=== PATIENT | female | born 1995 | race Caucasian/White ===

== ENCOUNTER 2016-03-30 00:23 | Emergency (ER) | payer OTHER ==
[2016-03-30] MEDS ORDERED: NORCO, ANEXSIA 5/325MG TABLET (HYDROcodone/ACETAMINOPHEN) As Ordered ONE (01:05)
[2016-03-30] MEDS ORDERED: BACTRIM 160MG/800MG DS TAB As Ordered ONE (02:29)
[2016-03-30] MEDS ORDERED: NORCO 5/325MG TABLET (BULK) As Ordered ONE (02:29)
--- NOTE | 2016-03-30 02:46 | EDDOCDS ---
Nurse's Notes [facility] Name: Samara Paredes Age: 20 yrs Sex: Female : 1995 Arrival Date: 03/30/2016 Time: 00:23 Bed I5 / M5 Private MD: Diagnosis: Unspecified open wound of right forearm;Nondisplaced fracture of head of right radius;Fall due to ice and snow Presentation: 03/30 00:34 Presenting complaint: Patient states: Slipped on ice and injured right arm. Adult [facility] Sepsis Screening: The patient does not have new or worsening altered mentation. Patient's respiratory rate is less than 22. Systolic blood pressure is greater than 100. Patient has a qSOFA score of 0- Negative Sepsis Screen. Suicide/Homicide risk assessment- the patient denies having any suicidal and/or homicidal ideations and does not present with any other emotional, behavioral or mental health complaints. 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 Transition of care: patient was not received from another setting of care. 00:34 Acuity: DORENE Level 4 [facility] 00:34 Method Of Arrival: Walkin/Carried/Asstd [facility] Triage Assessment: 00:36 General: Appears uncomfortable, Behavior is cooperative. Pain: Location: right arm Pain mcp currently is 10 out of 10 on a pain scale. HIV screening NA for this visit Offered previously. Neurological: No deficits noted. Respiratory: No deficits noted. Derm: Skin is pink, warm & dry. Musculoskeletal: Circulation, motion, and sensation intact. SVP BUSINESS DEVELOPMENT: 00:35 0, LMP N/A - control method [facility] Historical: - Allergies: no known allergies; - Home Meds: 1. nexplanon control - PMHx: none; - PSHx: Appendectomy; Tonsillectomy; - Social history: Smoking status: Patient uses tobacco products, light tobacco smoker. No barriers to communication noted, The patient speaks fluent Kyrgyz. - Family history: Not pertinent. - : The pt / caregiver states he / she is not on anticoagulants. Home medication list is obtained from the patient. - Exposure Risk Screening:: None identified. Screenin:53 Screening information is obtained from the patient. Fall risk: No risks identified. [facility] Assistance ADL's: requires no assistance with activities of daily living. Abuse/DV Screen: The patient / caregiver reports he/she is: not in a situation that causes fear, pain or injury. Nutritional screening: No deficits noted. Advance Directives: There is no active DNR order. home support is adequate. Assessment: 00:52 General: Appears uncomfortable, Behavior is appropriate for age, cooperative. Pain: [facility] Location: right arm Pain currently is 9 out of 10 on a pain scale. Respiratory: Airway is patent Respiratory effort is even, unlabored, Respiratory pattern is regular, symmetrical. Musculoskeletal: Circulation, motion, and sensation intact Capillary refill is brisk Range of motion limited in right elbow and right wrist. 02:35 General: Appears in no apparent distress. Pain: Location: right arm. Neurological: ld5 Level of Consciousness is awake, alert. Respiratory: Airway is patent Respiratory effort is even, unlabored. Vital Signs: 00:35 BP 134 / 85; Pulse 90; Resp 18; Temp 97.6(O); Pulse Ox 99% on R/A; Weight 77.11 kg; [facility] Height 5 ft. 7 in. (170.18 cm); Pain 10/10; 01:09 Pain 10/10; cp1 02:44 BP 132 / 68; Pulse 88; Resp 18; Temp 97.6(O); Pulse Ox 98% on R/A; cp1 00:35 Body Mass Index 26.63 (77.11 kg, 170.18 cm) [facility] 01:09 patient denies pain if she doesnt move but states her pain is a 10/10 with movement cp1 Vitals: 00:35 Log In Time: March 30, 2016 at 00:23. [facility] ED Course: 00:24 Patient visited by Mary Calixto Reg. hs2 00:24 Patient moved to Waiting hs2 00:34 Triage Initiated [facility] 00:37 Patient visited by Mary Brewer RN. [facility] 00:45 Patient moved to I5 / M5 [facility] 00:47 [facility] cc10 00:47 Deon Townsend DO is Attending Physician. cc10 00:47 Patient visited by Mateusz Gonzalez PA-C. cc10 00:47 Patient visited by Mateusz Gonzalez PA-C. cc10 00:52 Patient visited by Tabby Yoo RN. [facility] 00:53 The patient / caregiver is instructed regarding the plan of care and ED course. [facility] 00:53 No IV's were initiated during this patient's visit. cjh 01:13 Patient visited by Honey Portillo LPN. cp1 01:43 Patient visited by Honey Portillo LPN. cp1 02:18 Patient visited by Honey Portillo LPN. cp1 02:25 Assist provider with fracture care of right arm Circulation, motor and sensation is ld5 intact. Set up for procedure. Immoblized with Ortho Glass splint Performed by Mateusz Gonzalez PA-C Post immobilization, circulation, motor and sensation remain intact. Patient tolerated well. 02:26 [facility] is Referral Physician. cc10 02:36 Sling applied to right arm. Patient with positive distal sensation and brisk distal ld5 capillary refill after application. Administered Medications: 01:09 Drug: HYDROcodone-acetaminophen 1 tabs [hydrocodone 5 mg-acetaminophen 325 mg tablet (1 cp1 tabs)] Route: PO; 02:37 Follow up: Response: Confirmed pt not driving.; Pain is decreased ld5 02:46 Follow up: Response: Pain is decreased cp1 02:37 Drug: Trimethoprim-Sulfamethoxazole (MRSA dose) 2 tabs [sulfamethoxazole 800 ld5 mg-trimethoprim 160 mg tablet (2 tabs)] Route: PO; 02:45 Follow up: Response: Pt left department before re-evaluation is appropriate cp1 02:43 Drug: HYDROcodone-acetaminophen 4 pack- 1 packets [hydrocodone 5 mg-acetaminophen 325 ld5 mg tablet (1 tabs)] {Co-Signature: cp1 (Honey Portillo LPN).} Route: PO; 02:43 Follow up: Response: Med's dispensed home ld5 02:46 Follow up: Response: Med's dispensed home cp1 Order Results: There are currently no results for this order. Outcome: 02:26 Discharge ordered by Provider. cc10 02:36 Discharge Assessment: Patient awake, alert and oriented x 3. No cognitive and/or ld5 functional deficits noted. Patient verbalized understanding of disposition instructions. patient administered narcotics - yes. Pt provided with safe discharge. The following High Risk Discharge criteria are identified: None. Discharged to home ambulatory. Condition: stable. Discharge instructions given to patient, Instructed on discharge instructions, follow up and referral plans. medication usage, no driving heavy equipment, Demonstrated understanding of instructions, medications, Pt was receptive of discharge instructions/ teaching. Prescriptions given X 2, Work note provided to patient. No special radiology studies were completed. Property :Personal belongings accompany Pt. 02:46 Patient left the ED. cp1 Signatures: Mary Brewer RN RN mcp Perkins, Cheryl, LPN LPN cp1 Katherin Bravo RN RN ld5 Tabby Yoo RN RN cjh Coniski, Colin, PA-C PAMehrdadC cc10 Mary Calixto, Reg Reg hs2 Honey Portillo LPN cp1 Corrections: (The following items were deleted from the chart) 00:36 00:35 Home Meds: none; [facility] 02:36 00:53 No procedures done that require assistance [facility] emilio5 MTDD
--- NOTE | 2016-03-30 02:46 | EDDOCDS ---
Physician Documentation [facility] Name: Samara Paredes Age: 20 yrs Sex: Female : 1995 Arrival Date: 03/30/2016 Time: 00:23 Bed I5 / M5 Private MD: Disposition: 03/30/16 02:26 Discharged to Home/Self Care. Impression: Nondisplaced fracture of head of right radius, Unspecified open wound of right forearm, Fall due to ice and snow. - Condition is Stable. - Discharge Instructions: Cellulitis, Wrist Fracture. - Prescriptions for Hydrocodone- Acetaminophen 5-325 mg Oral Tablet - take 1 tablet by ORAL route every 6 hours As needed MDD: 4 tabs; 12 tablet. Bactrim DS 800- 160 mg Oral Tablet - take 2 tablet by ORAL route every 12 hours for 7 days; 28 tablet. - Work Release Form - 3 day, Medication Reconciliation, Local Pharmacy Hours, [facility] Followup form. - Follow up: Emergency Department; When: As needed; Reason: Worsening of conditions. Follow up: [facility]; When: Call to arrange an appointment; Reason: Wound/Symptom Recheck, Recheck today's complaints, Worsening of conditions, Continuance of care. - Problem is an ongoing problem. - Symptoms have improved. Historical: - Allergies: no known allergies; - Home Meds: 1. nexplanon control - PMHx: none; - PSHx: Appendectomy; Tonsillectomy; - Social history: Smoking status: Patient uses tobacco products, light tobacco smoker. No barriers to communication noted, The patient speaks fluent Tajik. - Family history: Not pertinent. - : The pt / caregiver states he / she is not on anticoagulants. Home medication list is obtained from the patient. - Exposure Risk Screening:: None identified. 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 7 in. (170.18 cm); Pain 10/10; 01:09 Pain 10/10; cp1 02:44 BP 132 / 68; Pulse 88; Resp 18; Temp 97.6(O); Pulse Ox 98% on R/A; cp1 00:35 Body Mass Index 26.63 (77.11 kg, 170.18 cm) mcp 01:09 patient denies pain if she doesnt move but states her pain is a 10/10 with movement cp1 Procedures: 02:33 Fracture care/splinting: (Stabilizing Care) Splint applied to dorsal aspect of right cc10 forearm and right wrist using flakito wrap, Orthoglass splint, sling, applied by myself. post reduction film - Examined by me, post splint application: neurovascular intact, 2+ distal pulses palpable, brisk capillary refill noted, Patient tolerated well. MDM: 00:51 HYDROcodone-acetaminophen 5 mg-325 mg 1 tabs PO once ordered. cc10 00:52 Forearm (radius/ulna) Ordered. EDMS 00:53 Hand, Complete Ordered. EDMS 00:53 Humerus Ordered. EDMS 01:10 Financial registration complete. slh 02:24 Sling ordered. cc10 02:24 HYDROcodone-acetaminophen 4 pack- 5 mg-325 mg 1 packets PO Per package directions; cc10 Dispense with patient. 1 po q4h prn for pain ordered. 02:24 Trimethoprim-Sulfamethoxazole (MRSA dose) 160 mg-800 mg (DS) 2 tabs PO once ordered. cc10 Administered Medications: 01:09 Drug: HYDROcodone-acetaminophen 1 tabs [hydrocodone 5 mg-acetaminophen 325 mg tablet (1 cp1 tabs)] Route: PO; 02:37 Follow up: Response: Confirmed pt not driving.; Pain is decreased ld5 02:46 Follow up: Response: Pain is decreased cp1 02:37 Drug: Trimethoprim-Sulfamethoxazole (MRSA dose) 2 tabs [sulfamethoxazole 800 ld5 mg-trimethoprim 160 mg tablet (2 tabs)] Route: PO; 02:45 Follow up: Response: Pt left department before re-evaluation is appropriate cp1 02:43 Drug: HYDROcodone-acetaminophen 4 pack- 1 packets [hydrocodone 5 mg-acetaminophen 325 ld5 mg tablet (1 tabs)] {Co-Signature: cp1 (Honey Portillo LPN).} Route: PO; 02:43 Follow up: Response: Med's dispensed home ld5 02:46 Follow up: Response: Med's dispensed home cp1 Signatures: Dispatcher [employer] Mary Foss RN RN mcp Perkins, Cheryl, LPN LPN cp1 Tabby Yoo RN RN cjh Coniski, Colin, PA-C PA-C cc10 Hook, Sandra Katherin Chaparro RN ld5 Honey Portillo LPN cp1 The chart was reviewed and I authenticate all verbal orders and agree with the evaluation and treatment provided.Corrections: (The following items were deleted from the chart) 00:36 00:35 Home Meds: none; [facility] MTDD
--- NOTE | 2016-03-30 08:23 | REP ---
Right humerus: Two views. History: Trauma. Findings: Two views of the right humerus demonstrate normal bones, joints, and soft tissues. No fracture or subluxation is seen. Impression: Negative right humerus. Signed by Rome Acevedo MD 03/30/2016 08:14 A
--- NOTE | 2016-03-30 08:35 | REP ---
Right forearm: Two views. History: Trauma. Findings: AP and lateral views of the right forearm demonstrate normal bones joints and soft tissues. No fracture or subluxation is seen. Impression: No fracture visible. Signed by Rome Acevedo MD 03/30/2016 08:48 A
--- NOTE | 2016-03-30 08:36 | REP ---
Right hand series: Four views. History: Trauma. Findings: Four views of the right hand demonstrate a mild negative ulnar variance at the wrist. Overall mineralization pattern is normal. There is no evidence of fracture or subluxation. Impression: No fracture noted. Dorsal metacarpal soft tissue swelling is seen on the lateral radiograph. Signed by Rome Acevedo MD 03/30/2016 08:48 A
--- NOTE | 2016-04-02 10:27 | EDDOCDS ---
Physician Documentation [facility] Name: Samara Paredes Age: 20 yrs Sex: Female : 1995 Arrival Date: 03/30/2016 Time: 00:23 Bed I5 / M5 Private MD: Disposition: 03/30/16 02:26 Discharged to Home/Self Care. Impression: Nondisplaced fracture of head of right radius, Unspecified open wound of right forearm, Fall due to ice and snow. - Condition is Stable. - Discharge Instructions: Cellulitis, Wrist Fracture. - Prescriptions for Hydrocodone- Acetaminophen 5-325 mg Oral Tablet - take 1 tablet by ORAL route every 6 hours As needed MDD: 4 tabs; 12 tablet. Bactrim DS 800- 160 mg Oral Tablet - take 2 tablet by ORAL route every 12 hours for 7 days; 28 tablet. - Work Release Form - 3 day, Medication Reconciliation, Local Pharmacy Hours, [facility] Followup form. - Follow up: Emergency Department; When: As needed; Reason: Worsening of conditions. Follow up: [facility]; When: Call to arrange an appointment; Reason: Wound/Symptom Recheck, Recheck today's complaints, Worsening of conditions, Continuance of care. - Problem is an ongoing problem. - Symptoms have improved. Historical: - Allergies: no known allergies; - Home Meds: 1. nexplanon control - PMHx: none; - PSHx: Appendectomy; Tonsillectomy; - Social history: Smoking status: Patient uses tobacco products, light tobacco smoker. No barriers to communication noted, The patient speaks fluent Kyrgyz. - Family history: Not pertinent. - : The pt / caregiver states he / she is not on anticoagulants. Home medication list is obtained from the patient. - Exposure Risk Screening:: None identified. 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 7 in. (170.18 cm); Pain 10/10; 01:09 Pain 10/10; cp1 02:44 BP 132 / 68; Pulse 88; Resp 18; Temp 97.6(O); Pulse Ox 98% on R/A; cp1 00:35 Body Mass Index 26.63 (77.11 kg, 170.18 cm) mcp 01:09 patient denies pain if she doesnt move but states her pain is a 10/10 with movement cp1 Procedures: 02:33 Fracture care/splinting: (Stabilizing Care) Splint applied to dorsal aspect of right cc10 forearm and right wrist using flakito wrap, Orthoglass splint, sling, applied by myself. post reduction film - Examined by me, post splint application: neurovascular intact, 2+ distal pulses palpable, brisk capillary refill noted, Patient tolerated well. MDM: 00:51 HYDROcodone-acetaminophen 5 mg-325 mg 1 tabs PO once ordered. cc10 00:52 Forearm (radius/ulna) Ordered. EDMS 00:53 Hand, Complete Ordered. EDMS 00:53 Humerus Ordered. EDMS 01:10 Financial registration complete. [facility] 02:24 Sling ordered. cc10 02:24 HYDROcodone-acetaminophen 4 pack- 5 mg-325 mg 1 packets PO Per package directions; cc10 Dispense with patient. 1 po q4h prn for pain ordered. 02:24 Trimethoprim-Sulfamethoxazole (MRSA dose) 160 mg-800 mg (DS) 2 tabs PO once ordered. cc10 03:36 [facility] Payment Agreement was scanned into [employer] and attached to record. [facility] 13:32 T-Sheet-- Draft Copy was scanned into [employer] and attached to record. gb Administered Medications: 01:09 Drug: HYDROcodone-acetaminophen 1 tabs [hydrocodone 5 mg-acetaminophen 325 mg tablet (1 cp1 tabs)] Route: PO; 02:37 Follow up: Response: Confirmed pt not driving.; Pain is decreased ld5 02:46 Follow up: Response: Pain is decreased cp1 02:37 Drug: Trimethoprim-Sulfamethoxazole (MRSA dose) 2 tabs [sulfamethoxazole 800 ld5 mg-trimethoprim 160 mg tablet (2 tabs)] Route: PO; 02:45 Follow up: Response: Pt left department before re-evaluation is appropriate cp1 02:43 Drug: HYDROcodone-acetaminophen 4 pack- 1 packets [hydrocodone 5 mg-acetaminophen 325 ld5 mg tablet (1 tabs)] {Co-Signature: cp1 (Honey Portillo LPN).} Route: PO; 02:43 Follow up: Response: Med's dispensed home ld5 02:46 Follow up: Response: Med's dispensed home cp1 Signatures: Dispatcher [employer] Mary Foss, RN RN Keli Michael, Reg Reg gb Lindsey,Honey,CRANE LADLE PERSON CRANE LADLE PERSON cp1 Tabby Yoo RN RN [facility] Mateusz Gonzalez PA-C PABailey Arauz Katherin Chaparro RN ld5 Honey Portillo LPN cp1 The chart was reviewed and I authenticate all verbal orders and agree with the evaluation and treatment provided.Corrections: (The following items were deleted from the chart) 00:36 00:35 Home Meds: none; [facility] Attachments: 03:36 [facility] Payment Agreement [facility] 13:32 T-Sheet-- Draft Copy Chart Complete MTDD
--- NOTE | 2016-04-02 10:27 | EDDOCDS ---
Nurse's Notes [facility] Name: Samara Paredes Age: 20 yrs Sex: Female : 1995 Arrival Date: 03/30/2016 Time: 00:23 Bed I5 / M5 Private MD: Diagnosis: Unspecified open wound of right forearm;Nondisplaced fracture of head of right radius;Fall due to ice and snow Presentation: 03/30 00:34 Presenting complaint: Patient states: Slipped on ice and injured right arm. Adult [facility] Sepsis Screening: The patient does not have new or worsening altered mentation. Patient's respiratory rate is less than 22. Systolic blood pressure is greater than 100. Patient has a qSOFA score of 0- Negative Sepsis Screen. Suicide/Homicide risk assessment- the patient denies having any suicidal and/or homicidal ideations and does not present with any other emotional, behavioral or mental health complaints. Status: Patient is not a job service specialist or dependent. Transition of care: patient was not received from another setting of care. 00:34 Acuity: DORENE Level 4 [facility] 00:34 Method Of Arrival: Walkin/Carried/Asstd [facility] Triage Assessment: 00:36 General: Appears uncomfortable, Behavior is cooperative. Pain: Location: right arm Pain mcp currently is 10 out of 10 on a pain scale. HIV screening NA for this visit Offered previously. Neurological: No deficits noted. Respiratory: No deficits noted. Derm: Skin is pink, warm & dry. Musculoskeletal: Circulation, motion, and sensation intact. COMMUNICATION ASSISTANT: 00:35 0, LMP N/A - control method [facility] Historical: - Allergies: no known allergies; - Home Meds: 1. nexplanon control - PMHx: none; - PSHx: Appendectomy; Tonsillectomy; - Social history: Smoking status: Patient uses tobacco products, light tobacco smoker. No barriers to communication noted, The patient speaks fluent Georgian. - Family history: Not pertinent. - : The pt / caregiver states he / she is not on anticoagulants. Home medication list is obtained from the patient. - Exposure Risk Screening:: None identified. Screenin:53 Screening information is obtained from the patient. Fall risk: No risks identified. [facility] Assistance ADL's: requires no assistance with activities of daily living. Abuse/DV Screen: The patient / caregiver reports he/she is: not in a situation that causes fear, pain or injury. Nutritional screening: No deficits noted. Advance Directives: There is no active DNR order. home support is adequate. Assessment: 00:52 General: Appears uncomfortable, Behavior is appropriate for age, cooperative. Pain: [facility] Location: right arm Pain currently is 9 out of 10 on a pain scale. Respiratory: Airway is patent Respiratory effort is even, unlabored, Respiratory pattern is regular, symmetrical. Musculoskeletal: Circulation, motion, and sensation intact Capillary refill is brisk Range of motion limited in right elbow and right wrist. 02:35 General: Appears in no apparent distress. Pain: Location: right arm. Neurological: ld5 Level of Consciousness is awake, alert. Respiratory: Airway is patent Respiratory effort is even, unlabored. Vital Signs: 00:35 BP 134 / 85; Pulse 90; Resp 18; Temp 97.6(O); Pulse Ox 99% on R/A; Weight 77.11 kg; [facility] Height 5 ft. 7 in. (170.18 cm); Pain 10/10; 01:09 Pain 10/10; cp1 02:44 BP 132 / 68; Pulse 88; Resp 18; Temp 97.6(O); Pulse Ox 98% on R/A; cp1 00:35 Body Mass Index 26.63 (77.11 kg, 170.18 cm) [facility] 01:09 patient denies pain if she doesnt move but states her pain is a 10/10 with movement cp1 Vitals: 00:35 Log In Time: March 30, 2016 at 00:23. [facility] ED Course: 00:24 Patient visited by Mary Calixto Reg. hs2 00:24 Patient moved to Waiting hs2 00:34 Triage Initiated [facility] 00:37 Patient visited by Mary Brewer RN. [facility] 00:45 Patient moved to I5 / M5 [facility] 00:47 Mateusz Gonzalez [facility]C [facility] cc10 00:47 Deon Townsend DO is Attending Physician. cc10 00:47 Patient visited by Mateusz Gonzalez PA-C. cc10 00:47 Patient visited by Mateusz Gonzalez PA-C. cc10 00:52 Patient visited by Tabby Yoo RN. [facility] 00:53 The patient / caregiver is instructed regarding the plan of care and ED course. [facility] 00:53 No IV's were initiated during this patient's visit. cjh 01:13 Patient visited by Honey Portillo LPN. cp1 01:43 Patient visited by Honey Portillo LPN. cp1 02:18 Patient visited by Honey Portillo LPN. cp1 02:25 Assist provider with fracture care of right arm Circulation, motor and sensation is ld5 intact. Set up for procedure. Immoblized with Ortho Glass splint Performed by Mateusz Gonzalez PA-C Post immobilization, circulation, motor and sensation remain intact. Patient tolerated well. 02:26 [facility] is Referral Physician. cc10 02:36 Sling applied to right arm. Patient with positive distal sensation and brisk distal ld5 capillary refill after application. 03:36 [facility] Payment Agreement was scanned into [employer] and attached to record. [facility] 03:43 Patient name changed from Samara\S\\S\[place]\S\ to Samara\S\Milli\S\[place]. EDMS 08:41 Humerus Returned. EDMS 08:41 Forearm (radius/ulna) Returned. EDMS 08:41 Hand, Complete Returned. EDMS 13:32 T-Sheet-- Draft Copy was scanned into [employer] and attached to record. gb Administered Medications: 01:09 Drug: HYDROcodone-acetaminophen 1 tabs [hydrocodone 5 mg-acetaminophen 325 mg tablet (1 cp1 tabs)] Route: PO; 02:37 Follow up: Response: Confirmed pt not driving.; Pain is decreased ld5 02:46 Follow up: Response: Pain is decreased cp1 02:37 Drug: Trimethoprim-Sulfamethoxazole (MRSA dose) 2 tabs [sulfamethoxazole 800 ld5 mg-trimethoprim 160 mg tablet (2 tabs)] Route: PO; 02:45 Follow up: Response: Pt left department before re-evaluation is appropriate cp1 02:43 Drug: HYDROcodone-acetaminophen 4 pack- 1 packets [hydrocodone 5 mg-acetaminophen 325 ld5 mg tablet (1 tabs)] {Co-Signature: cp1 (Honey Portillo LPN).} Route: PO; 02:43 Follow up: Response: Med's dispensed home ld5 02:46 Follow up: Response: Med's dispensed home cp1 Order Results: Radiology Order: Forearm (radius/ulna) Test: Forearm (radius/ulna) REASON FOR EXAMINATION: Trauma; Right forearm: Two views.; ; History: Trauma.; ; Findings: AP and lateral views of the right forearm demonstrate normal bones; joints and soft tissues. No fracture or subluxation is seen.; ; Impression:; ; No fracture visible.; ; ; Signed by; Rome Acevedo MD 03/30/2016 08:48 A; Radiology Order: Hand, Complete Test: Hand, Complete REASON FOR EXAMINATION: Trauma; Right hand series: Four views.; ; History: Trauma.; ; Findings: Four views of the right hand demonstrate a mild negative ulnar; variance at the wrist. Overall mineralization pattern is normal. There is no; evidence of fracture or subluxation.; ; Impression:; ; No fracture noted. Dorsal metacarpal soft tissue swelling is seen on the lateral; radiograph.; ; ; Signed by; Rome Acevedo MD 03/30/2016 08:48 A; Radiology Order: Humerus Test: Humerus REASON FOR EXAMINATION: Trauma; Right humerus: Two views.; ; History: Trauma.; ; Findings: Two views of the right humerus demonstrate normal bones, joints, and; soft tissues. No fracture or subluxation is seen.; ; Impression:; ; Negative right humerus.; ; ; Signed by; Rome Acevedo MD 03/30/2016 08:14 A; Outcome: 02:26 Discharge ordered by Provider. cc10 02:36 Discharge Assessment: Patient awake, alert and oriented x 3. No cognitive and/or ld5 functional deficits noted. Patient verbalized understanding of disposition instructions. patient administered narcotics - yes. Pt provided with safe discharge. The following High Risk Discharge criteria are identified: None. Discharged to home ambulatory. Condition: stable. Discharge instructions given to patient, Instructed on discharge instructions, follow up and referral plans. medication usage, no driving heavy equipment, Demonstrated understanding of instructions, medications, Pt was receptive of discharge instructions/ teaching. Prescriptions given X 2, Work note provided to patient. No special radiology studies were completed. Property :Personal belongings accompany Pt. 02:46 Patient left the ED. cp1 Signatures: Dispatcher [employer] Mary Foss RN RN Keli Michael Reg Reg gb Perkins, Cheryl,TEACHER LEARNING DISABLED TEACHER LEARNING DISABLED cp1 Katherin Bravo RN RN ld5 Tabby Yoo RN RN [facility] Mateusz Gonzalez, PAMehrdadC PAMehrdadC cc10 Bailey Stephen Mary Calvillo, Reg Reg hs2 Honey Portillo LPN cp1 Corrections: (The following items were deleted from the chart) 00:36 00:35 Home Meds: none; [facility] 02:36 00:53 No procedures done that require assistance [facility] Chart Complete MTDD
--- NOTE | 2016-04-02 10:27 | EDDOCDS ---
Physician Documentation [facility] Name: Samara Paredes Age: 20 yrs Sex: Female : 1995 Arrival Date: 03/30/2016 Time: 00:23 Bed I5 / M5 Private MD: Disposition: 03/30/16 02:26 Discharged to Home/Self Care. Impression: Nondisplaced fracture of head of right radius, Unspecified open wound of right forearm, Fall due to ice and snow. - Condition is Stable. - Discharge Instructions: Cellulitis, Wrist Fracture. - Prescriptions for Hydrocodone- Acetaminophen 5-325 mg Oral Tablet - take 1 tablet by ORAL route every 6 hours As needed MDD: 4 tabs; 12 tablet. Bactrim DS 800- 160 mg Oral Tablet - take 2 tablet by ORAL route every 12 hours for 7 days; 28 tablet. - Work Release Form - 3 day, Medication Reconciliation, Local Pharmacy Hours, [facility] Followup form. - Follow up: Emergency Department; When: As needed; Reason: Worsening of conditions. Follow up: [facility]; When: Call to arrange an appointment; Reason: Wound/Symptom Recheck, Recheck today's complaints, Worsening of conditions, Continuance of care. - Problem is an ongoing problem. - Symptoms have improved. Historical: - Allergies: no known allergies; - Home Meds: 1. nexplanon control - PMHx: none; - PSHx: Appendectomy; Tonsillectomy; - Social history: Smoking status: Patient uses tobacco products, light tobacco smoker. No barriers to communication noted, The patient speaks fluent Uzbek. - Family history: Not pertinent. - : The pt / caregiver states he / she is not on anticoagulants. Home medication list is obtained from the patient. - Exposure Risk Screening:: None identified. MICA MINER: 03/30 00:35 0, LMP N/A - control method [facility] Vital Signs: 00:35 BP 134 / 85; Pulse 90; Resp 18; Temp 97.6(O); Pulse Ox 99% on R/A; Weight 77.11 kg / mcp 170 lbs; Height 5 ft. 7 in. (170.18 cm); Pain 10/10; 01:09 Pain 10/10; cp1 02:44 BP 132 / 68; Pulse 88; Resp 18; Temp 97.6(O); Pulse Ox 98% on R/A; cp1 00:35 Body Mass Index 26.63 (77.11 kg, 170.18 cm) mcp 01:09 patient denies pain if she doesnt move but states her pain is a 10/10 with movement cp1 Procedures: 02:33 Fracture care/splinting: (Stabilizing Care) Splint applied to dorsal aspect of right cc10 forearm and right wrist using flakito wrap, Orthoglass splint, sling, applied by myself. post reduction film - Examined by me, post splint application: neurovascular intact, 2+ distal pulses palpable, brisk capillary refill noted, Patient tolerated well. MDM: 00:51 HYDROcodone-acetaminophen 5 mg-325 mg 1 tabs PO once ordered. cc10 00:52 Forearm (radius/ulna) Ordered. EDMS 00:53 Hand, Complete Ordered. EDMS 00:53 Humerus Ordered. EDMS 01:10 Financial registration complete. [facility] 02:24 Sling ordered. cc10 02:24 HYDROcodone-acetaminophen 4 pack- 5 mg-325 mg 1 packets PO Per package directions; cc10 Dispense with patient. 1 po q4h prn for pain ordered. 02:24 Trimethoprim-Sulfamethoxazole (MRSA dose) 160 mg-800 mg (DS) 2 tabs PO once ordered. cc10 03:36 [facility] Payment Agreement was scanned into [employer] and attached to record. [facility] 13:32 T-Sheet-- Draft Copy was scanned into [employer] and attached to record. gb Administered Medications: 01:09 Drug: HYDROcodone-acetaminophen 1 tabs [hydrocodone 5 mg-acetaminophen 325 mg tablet (1 cp1 tabs)] Route: PO; 02:37 Follow up: Response: Confirmed pt not driving.; Pain is decreased ld5 02:46 Follow up: Response: Pain is decreased cp1 02:37 Drug: Trimethoprim-Sulfamethoxazole (MRSA dose) 2 tabs [sulfamethoxazole 800 ld5 mg-trimethoprim 160 mg tablet (2 tabs)] Route: PO; 02:45 Follow up: Response: Pt left department before re-evaluation is appropriate cp1 02:43 Drug: HYDROcodone-acetaminophen 4 pack- 1 packets [hydrocodone 5 mg-acetaminophen 325 ld5 mg tablet (1 tabs)] {Co-Signature: cp1 (Honey Portillo LPN).} Route: PO; 02:43 Follow up: Response: Med's dispensed home ld5 02:46 Follow up: Response: Med's dispensed home cp1 Signatures: Dispatcher [employer] Mary Foss, RN RN Keli Michael, Reg Reg gb Lindsey,Honey,LIQUEFIED NATURAL GAS PLANT OPERATOR LIQUEFIED NATURAL GAS PLANT OPERATOR cp1 Tabby Yoo RN RN [facility] Mateusz Gonzalez PA-C PABailey Arauz Katherin Chaparro RN ld5 Honey Portillo LPN cp1 The chart was reviewed and I authenticate all verbal orders and agree with the evaluation and treatment provided.Corrections: (The following items were deleted from the chart) 00:36 00:35 Home Meds: none; honorio olmedo Attachments: 03:36 [facility] Payment Agreement [facility] 13:32 T-Sheet-- Draft Copy Chart Complete MTDD
== END 2016-03-30 02:46 | disposition home or self-care (01) ==
LOC: M ED 00:23
DX: S49.91XA Unspecified injury of right shoulder and upper arm, initial encounter (principal); W00.0XXA Fall on same level due to ice and snow, initial encounter; Y92.410 Unspecified street and highway as the place of occurrence of the external cause; Y93.89 Activity, other specified; Y99.8 Other external cause status; L03.113 Cellulitis of right upper limb; Z79.3 Long term (current) use of hormonal contraceptives; F17.210 Nicotine dependence, cigarettes, uncomplicated

== ENCOUNTER → 2017-08-25 | Outpatient (REF) | payer BC | LOC: M SFHCPLAZ 11:59 | DX: B18.2 Chronic viral hepatitis C (principal) ==

== ENCOUNTER → 2017-12-25 | Outpatient (REF) | payer BC ==
[2017-12-25 16:25] LABS: ALBUMIN/GLOBULIN RATIO 1.14 (1.00-1.93); ALKALINE PHOSPHATASE 91 U/L (45-117); ALT/SGPT 15 U/L (12-78); AST/SGOT 6 U/L (7-37); BILIRUBIN,DIRECT 0.2 MG/DL (0.0-0.2); BILIRUBIN,TOTAL 0.5 MG/DL (0.2-1.0); TOTAL PROTEIN 7.5 GM/DL (6.4-8.2)
[2017-12-26 12:18] LABS: HEPATITIS B SURFACE ANTIBODY NEGATIVE (POSITIVE)
[2017-12-31 00:07] LABS: HEPATITIS C QUANTITATION HCV Not Detected IU/mL (.)
== END ==
LOC: M SFHCPLAZ 13:46
DX: B18.2 Chronic viral hepatitis C (principal)
CPT/HCPCS: 80076

== ENCOUNTER → 2018-07-28 | Outpatient (CLI) | payer MEDICAID | LOC: M SMT 15:45 | PROVIDERS: ATTEND Obstetrics & Gynecology | DX: Z13.79 Encounter for other screening for genetic and chromosomal anomalies (principal) ==

== ENCOUNTER → 2020-01-17 | Outpatient (CLI) | payer OTHER | LOC: M WHC 12:05 | PROVIDERS: ATTEND Advanced Practice Midwife | DX: Z53.21 Procedure and treatment not carried out due to patient leaving prior to being seen by health care provider (principal) ==

== ENCOUNTER → 2020-02-15 | Outpatient (CLI) | payer SELFPAY ==
--- NOTE | 2020-02-16 11:18 | REP ---
INDICATION: ANATOMY COMPARISON: None. TECHNIQUE: Transabdominal obstetrical ultrasound with color Doppler evaluation. FINDINGS: Examination demonstrates a single live intrauterine in breech presentation. motion is identified by technologist. Placenta is noted posterior and grade 1 without evidence for placenta previa or abruption. Amniotic fluid volume is normal. Cervix measures 4.2 cm in length and appears closed.. Gestational age by current measurements 18 weeks 4 days with HALLIE 07/14/2020. FHR equals 150 beats per minute. BPD: 3.9 cm 18 weeks 0 days HC: 15.9 cm 18 weeks 5 days AC: 13.4 cm 18 weeks 6 days FL: 2.8 cm 18 weeks 4 days HL: 2.7 cm there is 18 weeks 4 days HC/AC: 1.18 Estimated weight 254 grams (56thpercentile). Anatomical assessment demonstrates normal structures including cranium, choroid plexus, cavum, cerebellum/posterior fossa, facial profile, stomach, cord insertion, bladder, spine, and upper extremities. Limited evaluation of the nose/lips, heart/ventricular outflow tracts, diaphragm, kidneys, lower extremities and three-vessel cord images. IMPRESSION: Single live intrauterine in breech presentation demonstrating appropriate estimated weight. Anatomical limitations as noted above may warrant re-evaluation and follow-up. <Electronically signed by Yoni Dailey > 02/16/20 [id number]
== END ==
LOC: M WHC 13:44
PROVIDERS: ATTEND Advanced Practice Midwife
DX: O32.1XX0 Maternal care for breech presentation, not applicable or unspecified (principal); Z3A.18 18 weeks gestation of pregnancy

== ENCOUNTER → 2020-03-21 | Outpatient (REF) | payer OTHER, MEDICAID | LOC: M SFHCWAGY 16:49 | PROVIDERS: ATTEND Specialist | DX: Z34.02 Encounter for supervision of normal first pregnancy, second trimester (principal); Z3A.00 Weeks of gestation of pregnancy not specified ==

== ENCOUNTER → 2020-05-19 | Outpatient (REF) | payer OTHER ==
[2020-05-19 15:33] LABS: HEMATOCRIT 33.9 % (36.0-47.0); HEMOGLOBIN 11.5 g/dl (12.0-15.5); MEAN CORPUSCULAR HEMOGLOBIN 30.6 pg (27.0-33.0); MEAN CORPUSCULAR HGB CONC 33.9 g/dl (32.0-36.5); MEAN CORPUSCULAR VOLUME 90.2 fl (80.0-96.0); PLATELET COUNT, AUTOMATED 312 10^3/uL (150-450); RED BLOOD COUNT 3.76 10^6/uL (4.00-5.40); WHITE BLOOD COUNT 18.7 10^3/uL (4.0-10.0)
[2020-05-19 16:02] LABS: ALT/SGPT 8 U/L (12-78); BILIRUBIN,TOTAL 0.2 MG/DL (0.2-1.0); CREATININE FOR GFR 0.47 MG/DL (0.55-1.30); CREATININE,RANDOM URINE 64.3 MG/DL; GLOMERULAR FILTRATION RATE > 60.0 (>60); GLUCOSE CHALLENGE TEST 1 HOUR 140 MG/DL (LESS THAN 140); LDH LACTATE DEHYDROGENASE 150 U/L (84-246); TOTAL PROTEIN,RANDOM URINE 16.7 MG/DL (0.0-12.0); URIC ACID 3.6 MG/DL (2.6-6.0)
== END ==
LOC: M PLALAB 11:16
PROVIDERS: ATTEND Obstetrics & Gynecology
DX: O13.3 Gestational [pregnancy-induced] hypertension without significant proteinuria, third trimester (principal)

== ENCOUNTER → 2020-05-20 | Outpatient (REF) | payer OTHER | LOC: M PLALAB 12:19 | PROVIDERS: ATTEND Obstetrics & Gynecology | DX: Z53.9 Procedure and treatment not carried out, unspecified reason (principal); R73.09 Other abnormal glucose ==

== ENCOUNTER → 2020-06-02 | Outpatient (REF) | payer OTHER | LOC: M PLALAB 15:29 | PROVIDERS: ATTEND Obstetrics & Gynecology | DX: O13.9 Gestational [pregnancy-induced] hypertension without significant proteinuria, unspecified trimester (principal) ==

== ENCOUNTER → 2020-06-05 | Outpatient (REF) | payer OTHER ==
[2020-06-05 15:12] LABS: HEMATOCRIT 34.8 % (36.0-47.0); HEMOGLOBIN 11.9 g/dl (12.0-15.5); MEAN CORPUSCULAR HEMOGLOBIN 31.2 pg (27.0-33.0); MEAN CORPUSCULAR HGB CONC 34.2 g/dl (32.0-36.5); MEAN CORPUSCULAR VOLUME 91.1 fl (80.0-96.0); PLATELET COUNT, AUTOMATED 333 10^3/uL (150-450); RED BLOOD COUNT 3.82 10^6/uL (4.00-5.40)
[2020-06-05 15:39] LABS: CREATININE,RANDOM URINE 50.5 MG/DL; TOTAL PROTEIN,RANDOM URINE 19.8 MG/DL (0.0-12.0)
[2020-06-05 15:41] LABS: ALT/SGPT 8 U/L (12-78); BILIRUBIN,TOTAL 0.1 MG/DL (0.2-1.0); GLOMERULAR FILTRATION RATE > 60.0 (>60); LDH LACTATE DEHYDROGENASE 143 U/L (84-246); URIC ACID 4.8 MG/DL (2.6-6.0)
== END ==
LOC: M PLALAB 13:30
PROVIDERS: ATTEND Obstetrics & Gynecology
DX: O13.9 Gestational [pregnancy-induced] hypertension without significant proteinuria, unspecified trimester (principal)

== ENCOUNTER → 2020-06-05 | Outpatient (CLI) | payer MEDICAID, OTHER ==
--- NOTE | 2020-06-05 22:45 | REP ---
INDICATION: F/U ANATOMY-HEART/FACIAL FEATURES COMPARISON: 02/15/2020 TECHNIQUE: Transabdominal obstetrical ultrasound with color Doppler evaluation. FINDINGS: Examination demonstrates a single live intrauterine in cephalic presentation. motion is identified by technologist. Placenta is noted posterior and grade 2 without evidence for placenta previa or abruption. Amniotic fluid volume is normal. Cervix measures 3.0 cm in length and appears closed.. Gestational age by 1st ultrasound 34 weeks 3 days with HALLIE 07/14/2020. Gestational age by current measurements 33 weeks 6 days with HALLIE 07/18/2020. FHR equals 143 beats per minute. NIDA: 11.5 cm (8.0-24.8) Estimated weight 2401 grams (42ndpercentile). Anatomical assessment demonstrates normal structures including facial profile, nose/lips, four-chamber heart, right ventricular outflow tract, diaphragm, stomach, kidneys/bladder, lower extremities and three-vessel cord.. IMPRESSION: Single live advanced gestation in cephalic presentation demonstrating appropriate estimated weight. In conjunction with prior examination anatomical assessment appears to be complete and normal. Evaluation is technically limited due to body habitus and advanced gestational age. <Electronically signed by Yoni Dailey > 06/05/20 [id number]
== END ==
LOC: M WHC 12:28
PROVIDERS: ATTEND Specialist
DX: Z36.9 Encounter for antenatal screening, unspecified (principal); Z3A.33 33 weeks gestation of pregnancy

== ENCOUNTER → 2020-06-09 | Outpatient (REF) | payer OTHER | LOC: M SFHCWAGY 13:37 | PROVIDERS: ATTEND Advanced Practice Midwife | DX: O14.90 Unspecified pre-eclampsia, unspecified trimester (principal) ==

== ENCOUNTER 2020-06-21 18:54 | Inpatient (IN) | payer OTHER ==
[~2020-06-21] VITALS: Ht 170.2 cm; Wt 100.1 kg
[2020-06-21] VITALS (7 sets, daily range): BP systolic 125–175; BP diastolic 85–97
[2020-06-21] MEDS ORDERED: BUPR8SUB SL (19:24)
[2020-06-21] MEDS ORDERED: ACET-683 PO (19:24)
[2020-06-21] MEDS ORDERED: LAXA15TA PO (19:24)
[2020-06-21] MEDS ORDERED: LIDOCAINE 1% MDV 20ML VIAL INFIL PRN (19:45)
[2020-06-21] MEDS ORDERED: OXYTOCIN DRIP 30 UNITS in IV 1 EA IV PRN (19:45)
[2020-06-21] MEDS ORDERED: PROMETHAZINE INJ 25 MG/ML VIAL (J2550) IV ONE (19:50)
[2020-06-21] MEDS ORDERED: BUTORPHANOL 2 MG/ML INJ (J0595) IV ONE (19:50)
[2020-06-21] MEDS ORDERED: PILL CUTTER 1 EACH XX PRN (20:10)
[2020-06-21] MEDS ORDERED: CATA0.2D PO (20:12)
[2020-06-21 20:36] LABS: HEMATOCRIT 36.7 % (36.0-47.0); HEMOGLOBIN 12.2 g/dl (12.0-15.5); MEAN CORPUSCULAR HEMOGLOBIN 29.8 pg (27.0-33.0); MEAN CORPUSCULAR HGB CONC 33.2 g/dl (32.0-36.5); MEAN CORPUSCULAR VOLUME 89.5 fl (80.0-96.0); PLATELET COUNT, AUTOMATED 306 10^3/uL (150-450); WHITE BLOOD COUNT 18.5 10^3/uL (4.0-10.0)
[2020-06-21 21:03] LABS: ALT/SGPT 7 U/L (12-78); BILIRUBIN,TOTAL 0.2 MG/DL (0.2-1.0); CREATININE FOR GFR 0.57 MG/DL (0.55-1.30); GLOMERULAR FILTRATION RATE > 60.0 (>60); LDH LACTATE DEHYDROGENASE 202 U/L (84-246); URIC ACID 6.5 MG/DL (2.6-6.0)
[2020-06-21] MEDS: miSOPROStol 50MCG 1/2 TABLET PO SCH (21:14)
[2020-06-21 21:26] LABS: AMPHETAMINES URINE REFLEX NEGATIVE (NEGATIVE); BARBITURATES URINE REFLEX NEGATIVE (NEGATIVE); BENZODIAZEPINES URINE REFLEX NEGATIVE (NEGATIVE); CANNABINOIDS URINE REFLEX NEGATIVE (NEGATIVE); COCAINE METABOLITE URINE REFLE NEGATIVE (NEGATIVE); METHADONE URINE REFLEX NEGATIVE (NEGATIVE); OPIATES URINE REFLEX NEGATIVE (NEGATIVE); PHENCYCLIDINE URINE REFLEX NEGATIVE (NEGATIVE)
[2020-06-21] MEDS ORDERED: CLONI1TA PO (22:03)
--- NOTE | 2020-06-21 22:05 | HPE ---
HISTORY AND PHYSICAL DATE OF ADMISSION: 06/21/2020 HISTORY OF PRESENT ILLNESS: Samara is a 24-year-old, 1, para 0, at 37 weeks gestation with an EDC of 07/12/2020 based on last menstrual period and confirmed by first trimester ultrasound. She presents to labor and delivery today for induction of labor due to preeclampsia. She does deny headache, visual disturbances, epigastric pain and right upper quadrant discomfort. She denies vaginal bleeding, leakage of fluid and irregular contractions. The fetus has been active. Her care was initiated at [facility] in the first trimester. Her course was complicated by chronic Hepatitis C; her Hep C viral load was too low to be detected, a history of opioid addiction with Subutex 2 mg every a.m. and 2 mg in the evening, and a new onset diagnosis of preeclampsia. She had normal preeclamptic labs with a spot urine of 0.39. OBSTETRIC HISTORY: Primigravida. OBSTETRIC LABS: O+. Antibody screen negative. Syphilis negative. Gonorrhea and Chlamydia negative. Hepatitis B negative. Hepatitis C positive; viral load undetectable. HIV negative. Rubella immune. Gestational diabetic screening normal at 122 and her GBS is negative. PAST MEDICAL HISTORY: Alcoholism, chronic Hepatitis C, history of heroin use and childhood Varicella. PAST SURGICAL HISTORY: Tonsils and adenoids, appendectomy. FAMILY HISTORY: Schizophrenia, diabetes. SOCIAL HISTORY: The patient is single. There does not appear to be a father of the baby involved. She does have family support; her sister is present. She is a smoker; approximately 6 to 10 a day. She denies current alcohol and drug use. She had a history of Chlamydia in the past. She denies history of abuse; physical, sexual and emotional. ALLERGIES: Prozac. CURRENT MEDICATIONS: Include Clonidine, Subutex, Vitamin. OBJECTIVE: Temperature 98.8, pulse 98, blood pressure 125/94. She is alert and oriented x3. heart rate is 140 with moderate variability, positive accelerations, negative decelerations. No pattern of regular contractions. Her abdomen is gravid, cephalic presentation. Estimated weight 6 to 6-1/2 pounds. Sterile vaginal exam: 1 cm dilated, 50% effaced, -3 station, posterior, moderate texture, no show with the exam. ASSESSMENT: Intrauterine at 37 weeks. heart rate is category 1 preeclampsia. PLAN: Per consult with Dr. Emerson, admit patient to labor and delivery for induction of labor, saline lock for I.V. access. Out of bed ad-jj. Regular diet at this time. Routine laboratories with a repeat CBC have been ordered. Misoprostol 50 mcg p.o. every 4 hours for cervical ripening. I did review risks, benefits and alternatives with the patient. She and sister's questions have been answered. She has been verbally consented for emergency surgery and blood products if they are necessary. I do anticipate cervical ripening.
[2020-06-22] VITALS (53 sets, daily range): BP systolic 123–202; BP diastolic 63–108
[2020-06-22] MEDS: miSOPROStol 50MCG 1/2 TABLET PO SCH ×2 (01:18→05:18)
[2020-06-22] MEDS ORDERED: LABETALOL 100MG/20ML VIAL IV STA (06:52)
[2020-06-22] MEDS ORDERED: LABETALOL 100MG/20ML VIAL As Ordered ONE (06:54)
[2020-06-22] MEDS: cloNIDine 0.1MG TABLET PO SCH ×2 (07:33→17:46)
[2020-06-22] MEDS ORDERED: miSOPROStol 50MCG 1/2 TABLET PV ONE (09:00)
[2020-06-22] MEDS: BUPRENORPHINE HCL 8MG SUBINGUAL TABLET SL SCH ×2 (09:16→17:46)
--- NOTE | 2020-06-22 11:59 | IPNPDOC ---
Text Note Date of Service The patient was seen on 06/22/20. NOTE Intrapartum Note I assumed care of Samara this morning at 0730. In brief, she is a 24yo G1 at 37w1d being induced for pre-eclampsia withOUT severe features. Her PMhx is significant for chronic hep C (viral load too low to be detected at start of ) and she is recovered from drug addiction, takes subutex daily. Pre-E diagnosis made based on persistent mild range bp's and proteinuria. Her IOL was started last night with oral cytotec and she received 3 doses. She is currently doing well, not feeling much cramping. Prior to my assumption of care, she was given one IV dose of labetalol for a few persistent severe range bp's that normalized her bp to mild range again and it has stayed mild range. Vitals: mild range bp's, afebrile Cat I-II FHRT with min-mod hans, +accels, -decels, bl 140 SCE: 2/50/-3, padilla cervical bulb placed with 40cc NS and 50mcg cytotec placed PV (at 0920) Will continue to closely monitor 4hr after cytotec, plan to start pitocin Discussed with patient that if she develops persistent severe range bp's (or other severe features) will need to start IV MgSO4. Safe to proceed MD VIRGIE Cobb,Desean, I+O VSDesean I+O Laboratory Tests 06/21/20 20:24 Vital Signs Date Time Temp Pulse Resp B/P (MAP) Pulse Ox O2 Delivery O2 Flow Rate FiO2 06/22/20 07:33 73 18 146/69 (94) 06/22/20 03:56 98.7 I&O- Last 24 Hours up to 6 AM 06/22/20 05:59 Intake Total 700 ml Output Total 800 ml Balance -100 ml Shanda Weldon MD Jun 22, 2020 11:59
[2020-06-22] MEDS ORDERED: MAG Sulf (L&D) 4 GM/100 ML 4 GM in IV 1 EA IV ONE (14:40)
[2020-06-22] MEDS ORDERED: OXYTOCIN DRIP 30 UNITS in IV 1 EA IV SCH (14:40)
[2020-06-22] MEDS ORDERED: CALCIUM GLUCONATE 1,000 MG in D5W MINI-BAG PLUS 100 ML IV PRN (14:40)
[2020-06-22] MEDS: MAG Sulf (OBGYN) 20GM/500ML 20,000 MG in IV 1 EA IV SCH (15:47)
[2020-06-22] MEDS ORDERED: hydrALAZINE 20MG/ML 1ML VIAL (J0360 PER 20MG) IV ONE ×2 (16:20→22:15)
[2020-06-22] MEDS ORDERED: PROMETHAZINE INJ 25 MG/ML VIAL (J2550) IV ONE (17:10)
[2020-06-22] MEDS ORDERED: BUTORPHANOL 2 MG/ML INJ (J0595) IV PRN (17:10)
--- NOTE | 2020-06-22 17:19 | IPNPDOC ---
Text Note Date of Service The patient was seen on 06/22/20. NOTE Intrapartum Note IV MgSO4 4g/2g started for persistent severe range bp's and she received a dose of 10mg hydralazine IV x1, now bp's mild range. Discussed with patient will cont inue MgSO4 until 24hr PP. Niño urinary catheter was placed. IV pitocin ordered and recently started. Cat I-II FHRT for min-mod hans with pos accels, no decels Plan to titrate pitocin to adequate ctx pattern IV stadol/phenergan as needed for pain in latent labor and epidural in active labor if desired Will continue to closely monitor Safe to proceed Shanda Weldon MD VS,Desean, I+O VSDesean I+O Laboratory Tests 06/21/20 20:24 Vital Signs Date Time Temp Pulse Resp B/P (MAP) Pulse Ox O2 Delivery O2 Flow Rate FiO2 06/22/20 16:29 178/96 06/22/20 16:17 77 18 06/22/20 14:04 99.9 I&O- Last 24 Hours up to 6 AM 06/22/20 06:00 Intake Total 700 ml Output Total 800 ml Balance -100 ml Shanda Weldon MD Jun 22, 2020 17:19
--- NOTE | 2020-06-22 22:27 | IPNPDOC ---
Text Note Date of Service The patient was seen on 06/22/20. NOTE Intrapartum Note Pt in pain, desiring pain relief. BP severe range on repeat, suspect contributed to by pain. No MEDINA/vision changes/RUQ pain. Cat I-II FHRT for min-mod hans, +accels, -decels [place]: ctx q2min SCE: /-2 Patient to receive epidural Will give 500ml IVF bolus in anticipated of epidural Will also give 5mg IV hydralazine x1 now for severe bp's Continue IV MgSO4 Continue IV pitocin, titrating per protocol Will continue to closely monitor. Once patient is comfortable, will consider AROM Safe to proceed Shanda Weldon MD VS,Desean, I+O VSDesean I+O Vital Signs Date Time Temp Pulse Resp B/P (MAP) Pulse Ox O2 Delivery O2 Flow Rate FiO2 06/22/20 22:21 191/91 06/22/20 20:37 99 18 06/22/20 19:53 97.7 I&O- Last 24 Hours up to 6 AM 06/22/20 06:00 Intake Total 700 ml Output Total 800 ml Balance -100 ml Shanda Weldon MD Jun 22, 2020 22:27
[2020-06-22 23:02] LABS: HEMATOCRIT 37.3 % (36.0-47.0); HEMOGLOBIN 12.5 g/dl (12.0-15.5); MEAN CORPUSCULAR HEMOGLOBIN 29.6 pg (27.0-33.0); MEAN CORPUSCULAR HGB CONC 33.5 g/dl (32.0-36.5); MEAN CORPUSCULAR VOLUME 88.2 fl (80.0-96.0); PLATELET COUNT, AUTOMATED 267 10^3/uL (150-450); RED BLOOD COUNT 4.23 10^6/uL (4.00-5.40); WHITE BLOOD COUNT 26.5 10^3/uL (4.0-10.0)
[2020-06-22] MEDS ORDERED: FENTANYL 2MCG/ML ROPIVACAINE 0.2% IN 0.9% NACL 100ML IVBAG As Ordered ONE (23:05)
[2020-06-22] MEDS: FENTANYL/ROPIVACAINE/NACL BAG 100 ML EPIDURAL SCH (23:44)
[2020-06-23] VITALS (83 sets, daily range): BP systolic 79–197; BP diastolic 43–118
[2020-06-23] MEDS: MAG Sulf (OBGYN) 20GM/500ML 20,000 MG in IV 1 EA IV SCH ×3 (00:54→13:50)
[2020-06-23] MEDS ORDERED: ONDANSETRON 4MG/2ML VIAL IV PRN ×2 (01:00→13:15)
[2020-06-23] MEDS ORDERED: EPIDURAL/PCA KEYS XX PRN (01:00)
[2020-06-23] MEDS ORDERED: ePHEDrine SULFATE 25 MG/5 ML(5MG/ML) SYRINGE IV PRN (01:00)
[2020-06-23] MEDS ORDERED: REFRIGERATOR IV KEYS XX PRN (01:00)
[2020-06-23] MEDS ORDERED: LACTATED RINGER'S 1000 ML IV PRN (01:00)
[2020-06-23] MEDS ORDERED: EPIDURAL COMMENT XX SCH (01:00)
[2020-06-23] MEDS ORDERED: NALOXONE INJ 0.4MG/1ML VIAL (J2310 PER 1MG) IV PRN (01:00)
[2020-06-23] MEDS ORDERED: diphenhydrAMINE 50MG/ML VIAL (J1200) IV PRN (01:00)
--- NOTE | 2020-06-23 04:18 | IPNPDOC ---
Text Note Date of Service The patient was seen on 06/23/20. NOTE Intrapartum Note Pt doing well, has been able to sleep since receiving her epidural. Also, since her epidural her bp's have been mostly normotensive, occasionally mild range and she has required no further doses of IV anti-HTN med. No MEDINA/vision changes/RUQ pain. Cat I-II FHRT for min-mod hans, +accels, -decels SCE: /-2, AROM performed with blood tinged fluid noted Plan to continue to titrate pitocin to adequate ctx pattern Plan to re-check in 2hr, if no progress will place an BANNER Plan to continue MgSO4 Will continue to closely observe Safe to proceed Shanda Weldon MD VS,Desean, I+O VS, Desean I+O Laboratory Tests 06/22/20 22:57 Vital Signs Date Time Temp Pulse Resp B/P (MAP) Pulse Ox O2 Delivery O2 Flow Rate FiO2 06/23/20 03:16 100 18 135/71 (92) 06/23/20 03:02 97.4 I&O- Last 24 Hours up to 6 AM 06/23/20 05:59 Intake Total 1650 ml Output Total 2020 ml Balance -370 ml Shanda Weldon MD Jun 23, 2020 04:18
[2020-06-23] MEDS ORDERED: hydrALAZINE 20MG/ML 1ML VIAL (J0360 PER 20MG) IV ONE ×2 (05:10→07:50)
[2020-06-23] MEDS: FENTANYL/ROPIVACAINE/NACL BAG 100 ML EPIDURAL SCH (07:03)
[2020-06-23] MEDS: cloNIDine 0.1MG TABLET PO SCH ×2 (08:02→16:56)
[2020-06-23] MEDS: BUPRENORPHINE HCL 8MG SUBINGUAL TABLET SL SCH ×2 (08:02→16:55)
[2020-06-23] MEDS: ACETAMINOPHEN 500 MG TAB PO PRN ×3 (08:02→21:08)
--- NOTE | 2020-06-23 08:10 | IPNPDOC ---
Text Note Date of Service The patient was seen on 06/23/20. NOTE Intrapartum Note Pt not feeling well- naueous with episode of emesis, headache recently developed and having a lot of pain with contractions in her back. No vision changes. Overall mostly mild range bp's, but recent severe ranges (this happens whenever patient's pain increases), afebrile SCE: 7-8/75/-2, IUPC placed and FSE Cat I-II FHRT for min-mod hans, +accels, -decels, bl 130 Woden: ctx q3-4min Plan to give tylenol 1000mg PO for MEDINA and 10mg IV hydralazine for bp Anesthesia was requested to come evaluate to improve patient's pain Will titrate pitocin to adequate MVUs Will continue IV MgSO4 Will continue to closely monitor Safe to proceed Report given to JELLY Car and Dr. White at change of shift Shanda Weldon MD VS,Desean, I+O VSDesean I+O Laboratory Tests 06/22/20 22:57 Vital Signs Date Time Temp Pulse Resp B/P (MAP) Pulse Ox O2 Delivery O2 Flow Rate FiO2 06/23/20 07:00 111 18 154/82 (106) 06/23/20 03:02 97.4 I&O- Last 24 Hours up to 6 AM 06/23/20 06:00 Intake Total 2300 ml Output Total 2635 ml Balance -335 ml Shanda Weldon MD Jun 23, 2020 08:10
--- NOTE | 2020-06-23 09:21 | IPNPDOC ---
Text Note Date of Service The patient was seen on 06/23/20. NOTE Progress Reports rectal pressure C/C/+2 Cat I tracing. Second stage. VS,Fishbone, I+O VS, Fishbone, I+O Laboratory Tests 06/22/20 22:57 Vital Signs Date Time Temp Pulse Resp B/P (MAP) Pulse Ox O2 Delivery O2 Flow Rate FiO2 06/23/20 08:30 96 18 121/60 (80) 06/23/20 03:02 97.4 I&O- Last 24 Hours up to 6 AM 06/23/20 06:00 Intake Total 2300 ml Output Total 2635 ml Balance -335 ml Zayda Car CNM Jun 23, 2020 09:21
[2020-06-23] MEDS ORDERED: LIDOCAINE 1% MDV 20ML VIAL INFIL PRN (09:40)
[2020-06-23] MEDS ORDERED: OXYTOCIN DRIP 30 UNITS in IV 1 EA IV PRN (09:40)
--- NOTE | 2020-06-23 10:46 | DNPDOC ---
[facility] Delivery Note Delivery Note DATE OF DELIVERY: 06/23/2020 PREDELIVERY DIAGNOSIS: 37+2/7 weeks' gestation and labor, preeclampsia POST DELIVERY DIAGNOSIS: Delivered. PROCEDURE: Spontaneous vaginal delivery PROVIDER: Zayda Car CNM ANESTHESIA: epidural ESTIMATED BLOOD LOSS: 500 mL. FINDINGS: 5 pound 7 ounce, 2470gm female infant, Score 8/9, nuchal cord times 1. DELIVERY SUMMARY: Patient is a 24-year-old 1 now para 1-0-0-1 who was admitted to labor and delivery for induction of labor due to pre-eclampsia. She received misoprostol, pitocin, AROM and labor progressed. Mag Sulfate was started. She utilized an epidural for coping. AROM clear fluid 0407. Fully dilated 0916. Viable female delivered KURT, somersaulted through nuchal cord @ 0955. Spontaneous respirations with stimulation, transitioned on maternal abdomen. Cord doubly clamped and cut once pulsations ceased. Apgars 8/9. Placenta woodall, intact with 3v cord and small succenturiate lobe @ 1002. Misoprostol given 1000mcg PA and IV pitocin bolus commenced. Fundus firmed with massage, EBL 500ml. Perineum intact. Small first degree posterior vaginal laceration repaired with one suture of 3-0 vicryl rapide. Sponge, sharp and instrument count correct. Mom is naming her daughter Maria C. Zayda Car CNM Jun 23, 2020 10:46
[2020-06-23] MEDS ORDERED: LABETALOL 100MG/20ML VIAL IV STA (11:42)
[2020-06-23] MEDS: LABETALOL 200 MG TAB PO SCH ×2 (12:22→21:08)
[2020-06-23] MEDS ORDERED: DOCUSATE SODIUM 100MG CAPSULE PO PRN (13:05)
[2020-06-23] MEDS ORDERED: LR 1,000 ML IV SCH (13:14)
[2020-06-23] MEDS ORDERED: ACETAMINOPHEN 500 MG TAB PO PRN (13:20)
[2020-06-23] MEDS ORDERED: LACTATED RINGER'S 1000 ML IV ONE (13:50)
[2020-06-23] MEDS ORDERED: cloNIDine 0.1MG TABLET PO SCH (21:00)
[2020-06-24] VITALS (26 sets, daily range): BP systolic 107–171; BP diastolic 55–88
[2020-06-24] MEDS: MAG Sulf (OBGYN) 20GM/500ML 20,000 MG in IV 1 EA IV SCH (01:37)
[2020-06-24] MEDS: ACETAMINOPHEN 500 MG TAB PO PRN ×2 (04:32→20:16)
[2020-06-24] MEDS: BUPRENORPHINE HCL 8MG SUBINGUAL TABLET SL SCH ×2 (07:35→17:24)
[2020-06-24] MEDS: cloNIDine 0.1MG TABLET PO SCH ×2 (07:44→17:23)
[2020-06-24] MEDS: LABETALOL 200 MG TAB PO SCH ×2 (08:38→21:14)
[2020-06-24] MEDS ORDERED: BUPRENORPHINE HCL 8MG SUBINGUAL TABLET SL SCH (09:00)
[2020-06-24 23:18] LABS: HEMATOCRIT 21.7 % (36.0-47.0); MEAN CORPUSCULAR HEMOGLOBIN 30.6 pg (27.0-33.0); MEAN CORPUSCULAR HGB CONC 32.3 g/dl (32.0-36.5); MEAN CORPUSCULAR VOLUME 94.8 fl (80.0-96.0); PLATELET COUNT, AUTOMATED 215 10^3/uL (150-450); RED BLOOD COUNT 2.29 10^6/uL (4.00-5.40); WHITE BLOOD COUNT 19.3 10^3/uL (4.0-10.0)
[2020-06-25] VITALS (32 sets, daily range): BP systolic 130–182; BP diastolic 69–105
[2020-06-25] MEDS: ACETAMINOPHEN 500 MG TAB PO PRN ×3 (06:00→20:16)
[2020-06-25] MEDS: BUPRENORPHINE HCL 8MG SUBINGUAL TABLET SL SCH ×2 (08:15→17:00)
[2020-06-25] MEDS: LABETALOL 200 MG TAB PO SCH ×2 (08:15→20:17)
[2020-06-25] MEDS: cloNIDine 0.1MG TABLET PO SCH ×2 (08:15→17:00)
--- NOTE | 2020-06-25 08:53 | IPNPDOC ---
Progress Note Date of Service: Jun 25, 2020 Day#: 2 Progress Note SUBJECT: Status post . Complicated by preeclampsia with severe features. Status post magnesium sulfate. Currently receiving Labetalol 200mg BID for antihypertension therapy. Noted to have some residual bleeding, intermittent passage of blood clots throughout yesterday. CBC drawn last night, which revealed significant anemia. She is taking buprenorphine 4mg daily; h/o opioid dependence (clean for 5 years). Baby is currently in NICU. She has been ambulating, voiding spontaneously without issue and tolerating regular diet. Lochia decreasing/minimal. Pain is well-controlled. Denies headache, visual changes, right upper quadrant pain, shortness breath or chest pain. OBJECTIVE: VITAL SIGNS: Intermittently hypertensive (mild range), normal HR afebrile. Alert and oriented times three. Abdomen: Fundus firm at U-2. Soft, NTTP. ASSESSMENT: Status post spontaneous vaginal delivery c/b pre-eclampsia with severe features. Now with evidence of significant anemia. Vitals within normal limits, afebrile, hemodynamically stable with no evidence of infection. PLAN: Repeat CBC this AM; if same level of anemia or lower, then plan is to proceed with blood transfusion. Continue Labetalol 200mg BID; adjust today as needed. Tylenol and Motrin for pain; continue buprenorphine. Routine care Nicole White DO VS, I&O, 24H, Desean Vital Signs/I&O Vital Signs Date Time Temp Pulse Resp B/P (MAP) Pulse Ox O2 Delivery O2 Flow Rate FiO2 06/25/20 08:15 98 158/86 06/25/20 06:26 98.3 20 Room Air 06/24/20 20:23 98 I&O- Last 24 Hours up to 6 AM 06/25/20 06:00 Intake Total 810.5 ml Output Total 2200 ml Balance -1389.5 ml Laboratory Data 24H LABS Laboratory Tests 2 06/24/20 23:08: Nucleated Red Blood Cells % (auto) 0.0 CBC/BMP Laboratory Tests 06/24/20 23:08 SANTO WHITE DO Jun 25, 2020 08:53
[2020-06-25] MEDS ORDERED: BOOSTRIX/ADACEL VACCINE (DIPHTH/PERTUSS/ACELL/TETANUS) 0.5ML SYR IM ONE (09:00)
[2020-06-25 09:41] LABS: MEAN CORPUSCULAR HEMOGLOBIN 30.4 pg (27.0-33.0); MEAN CORPUSCULAR VOLUME 94.9 fl (80.0-96.0); PLATELET COUNT, AUTOMATED 240 10^3/uL (150-450); RED BLOOD COUNT 2.14 10^6/uL (4.00-5.40); WHITE BLOOD COUNT 16.6 10^3/uL (4.0-10.0)
[2020-06-25 09:54] LABS: HEMATOCRIT 20.3 % (36.0-47.0); HEMOGLOBIN 6.5 g/dl (12.0-15.5)
[2020-06-25] MEDS: NICOTINE 7 MG/24 HR TRANSDERMAL TD SCH (16:07)
[2020-06-25] MEDS ORDERED: LABETALOL 100MG/20ML VIAL IV ONE (18:10)
[2020-06-26] VITALS (19 sets, daily range): BP systolic 158–222; BP diastolic 84–126
[2020-06-26 08:01] LABS: HEMATOCRIT 29.9 % (36.0-47.0); HEMOGLOBIN 9.9 g/dl (12.0-15.5); MEAN CORPUSCULAR HEMOGLOBIN 30.5 pg (27.0-33.0); MEAN CORPUSCULAR HGB CONC 33.1 g/dl (32.0-36.5); PLATELET COUNT, AUTOMATED 258 10^3/uL (150-450); RED BLOOD COUNT 3.25 10^6/uL (4.00-5.40); WHITE BLOOD COUNT 15.8 10^3/uL (4.0-10.0)
[2020-06-26] MEDS: cloNIDine 0.1MG TABLET PO SCH ×2 (08:08→16:52)
--- NOTE | 2020-06-26 08:28 | IPNPDOC ---
Progress Note Date of Service: Jun 26, 2020 Day#: 3 Progress Note SUBJECT: Status post c/b pre-e w/ severe features. She has been ambulating, voiding spontaneously without issue and tolerating regular diet. Lochia decreasing/minimal. Pain is well-controlled. Denies headache, visual changes, right upper quadrant pain, shortness breath or chest pain. Received 3U prbc yesterday for anemia; appropriate rise in h/h status post transfusion. Patient exhibited several elevated BPs over the last 24 hours OBJECTIVE: VITAL SIGNS: See [employer], afebrile. H: RRR L: CTAB; nonlabored Alert and oriented times three. Abdomen: Fundus firm at U-2. Soft, NTTP. ASSESSMENT: Status post spontaneous vaginal delivery; pre-e with severe features. Hypertensive, afebrile, hemodynamically stable with no evidence of infection. PLAN: Increase Labetalol to 400mg BID. Continue care / close observation. Nicole White DO VS, I&O, 24H, Levonbone Vital Signs/I&O Vital Signs Date Time Temp Pulse Resp B/P (MAP) Pulse Ox O2 Delivery O2 Flow Rate FiO2 06/26/20 08:08 166/90 06/26/20 05:53 97.7 85 16 95 Room Air l I&O- Last 24 Hours up to 6 AM 06/26/20 05:59 Intake Total 1700 ml Balance 1700 ml Laboratory Data 24H LABS Laboratory Tests 2 06/25/20 09:15: Nucleated Red Blood Cells % (auto) 0.0 06/26/20 07:03: Nucleated Red Blood Cells % (auto) 0.1H CBC/BMP Laboratory Tests 06/25/20 09:15 06/26/20 07:03 SANTO WHITE DO Jun 26, 2020 08:28
[2020-06-26] MEDS ORDERED: PILL CUTTER 1 EACH XX PRN (08:35)
[2020-06-26] MEDS: BUPRENORPHINE HCL 8MG SUBINGUAL TABLET SL SCH ×2 (08:48→16:54)
[2020-06-26] MEDS: NICOTINE 7 MG/24 HR TRANSDERMAL TD SCH (08:52)
[2020-06-26] MEDS ORDERED: BOOSTRIX/ADACEL VACCINE (DIPHTH/PERTUSS/ACELL/TETANUS) 0.5ML SYR IM ONE (09:00)
[2020-06-26] MEDS ORDERED: LABETALOL 200 MG TAB PO SCH (09:00)
[2020-06-26] MEDS ORDERED: DOCUSATE SODIUM 100MG CAPSULE PO ONE (15:15)
[2020-06-26] MEDS ORDERED: LABETALOL 100MG TAB PO SCH (16:00)
[2020-06-26] MEDS: LABETALOL 100MG TAB PO SCH (16:45)
[2020-06-26 17:35] LABS: ALT/SGPT 14 U/L (12-78); BILIRUBIN,TOTAL 0.2 MG/DL (0.2-1.0); CREATININE FOR GFR 0.52 MG/DL (0.55-1.30); GLOMERULAR FILTRATION RATE > 60.0 (>60); LDH LACTATE DEHYDROGENASE 225 U/L (84-246); URIC ACID 6.1 MG/DL (2.6-6.0)
[2020-06-26] MEDS ORDERED: hydrALAZINE 20MG/ML 1ML VIAL (J0360 PER 20MG) IV ONE ×2 (17:35→18:40)
[2020-06-26] MEDS ORDERED: hydrALAZINE 20MG/ML 1ML VIAL (J0360 PER 20MG) As Ordered ONE (17:55)
[2020-06-26] MEDS: DOCUSATE SODIUM 100MG CAPSULE PO SCH (20:42)
[2020-06-26] MEDS ORDERED: NIFEdipine 30 MG XL TAB PO SCH (21:00)
[2020-06-27] VITALS (20 sets, daily range): BP systolic 140–187; BP diastolic 80–110
[2020-06-27] MEDS: LABETALOL 100MG TAB PO SCH ×3 (01:03→16:58)
[2020-06-27] MEDS: ACETAMINOPHEN 500 MG TAB PO PRN ×3 (07:32→21:33)
[2020-06-27] MEDS: cloNIDine 0.1MG TABLET PO SCH ×2 (07:55→16:59)
[2020-06-27] MEDS: BUPRENORPHINE HCL 8MG SUBINGUAL TABLET SL SCH ×2 (07:56→17:00)
[2020-06-27 08:21] LABS: HEMATOCRIT 30.4 % (36.0-47.0); MEAN CORPUSCULAR HEMOGLOBIN 29.9 pg (27.0-33.0); MEAN CORPUSCULAR HGB CONC 32.9 g/dl (32.0-36.5); PLATELET COUNT, AUTOMATED 300 10^3/uL (150-450); RED BLOOD COUNT 3.34 10^6/uL (4.00-5.40); WHITE BLOOD COUNT 17.3 10^3/uL (4.0-10.0)
[2020-06-27 08:41] LABS: BLOOD UREA NITROGEN 8 MG/DL (7-18); CALCIUM LEVEL 8.8 MG/DL (8.5-10.1); CARBON DIOXIDE LEVEL 25 MEQ/L (21-32); CHLORIDE LEVEL 108 MEQ/L (98-107); CREATININE FOR GFR 0.48 MG/DL (0.55-1.30); GLOMERULAR FILTRATION RATE > 60.0 (>60); GLUCOSE, FASTING 89 MG/DL (70-100); MAGNESIUM LEVEL 1.7 MG/DL (1.8-2.4); POTASSIUM SERUM 4.7 MEQ/L (3.5-5.1); SODIUM LEVEL 138 MEQ/L (136-145)
[2020-06-27] MEDS: DOCUSATE SODIUM 100MG CAPSULE PO SCH ×2 (09:24→20:15)
[2020-06-27] MEDS: NICOTINE 7 MG/24 HR TRANSDERMAL TD SCH (09:28)
[2020-06-27 10:05] LABS: AMPHETAMINES URINE REFLEX NEGATIVE (NEGATIVE); BARBITURATES URINE REFLEX NEGATIVE (NEGATIVE); BENZODIAZEPINES URINE REFLEX NEGATIVE (NEGATIVE); CANNABINOIDS URINE REFLEX NEGATIVE (NEGATIVE); COCAINE METABOLITE URINE REFLE NEGATIVE (NEGATIVE); METHADONE URINE REFLEX NEGATIVE (NEGATIVE); OPIATES URINE REFLEX NEGATIVE (NEGATIVE); PHENCYCLIDINE URINE REFLEX NEGATIVE (NEGATIVE)
[2020-06-27] MEDS ORDERED: FUROSEMIDE 20MG/2ML VIAL (J1940) IV STA (10:47)
--- NOTE | 2020-06-27 17:38 | IPNPDOC ---
Text Note Date of Service The patient was seen on 06/27/20. NOTE Elevated bp's I was called by RN regarding persistent severe range bp's for Samara despite earlier dose of lasix ordered by IM physician Dr. Becerra. I asked the nurse to touch base with Dr. Becerra regarding further instructions and then I also called him when I had a free moment. Patient has been putting out >100ml/hr UOP this afternoon/evening and RN reports patient overall looks and feels better. There is uncertainty whether she has true intentions to breast feed since nurse has reminded her to pump and dump throughout the day and she has different excuses why she cannot. So far, her physicians have taken care to use medications that are safe for . She is due to have 60mg PO nifedipine at 2100 this evening. She is receiving PO 300mg labetalol TID and 0.1mg clonidine BID as well. I discussed plan with Dr. Becerra, he intends to give her another dose of IV hydralazine. We agree that there may be a component of anxiety that is exacerbating her bp's, but ultimately we need to find a good regimen of bp meds for her to go home on. Shanda Weldon MD VS,Desean I+O VS, Desean I+O Laboratory Tests 06/27/20 08:02 Vital Signs Date Time Temp Pulse Resp B/P (MAP) Pulse Ox O2 Delivery O2 Flow Rate FiO2 06/27/20 17:00 187/107 (133) 06/27/20 16:58 100 06/27/20 05:30 98.5 16 96 Room Air Shanda Weldon MD Jun 27, 2020 17:38
[2020-06-27] MEDS ORDERED: hydrALAZINE 20MG/ML 1ML VIAL (J0360 PER 20MG) IV PRN (17:40)
[2020-06-27] MEDS ORDERED: NIFEdipine 30 MG XL TAB PO SCH (21:00)
[2020-06-27] MEDS ORDERED: LABETALOL 100MG/20ML VIAL IV STA (21:02)
--- NOTE | 2020-06-27 23:30 | HPEPDOC ---
[facility] Medical History & Physical Date of Admission Jun 21, 2020 Date of Service: Jun 27, 2020 History and Physical CHIEF COMPLAINT: Hypertension HISTORY OF PRESENT ILLNESS: Mrs. Umana is a 24 year old female with tobacco use disorder and history of recreational drug use who his here for delivery. Medicine was consulted for hypertension. Patient tells me that she stopped smoking on the day of admission and had stopped drinking alcohol in November of 2019. She formerly used recreational drugs, but not recently. Unlikely having a withdrawal at this time. Otherwise, despite labetalol 300mg TID, clonidine 0.1mg BID, and Nifedipine 30mg qHS, her blood pressure remains elevated with SBP in the 180s to 200s. Blood pressure regimen has been limited to what would be safe for , although at this time she is not breast feeding. Otherwise, she denies any chest pain or dyspnea. She reports some abd ominal pain and back pain from the vaginal delivery. She has anxiety which may be contributing to her blood pressure. Denies any fever/chills or chest pain. She feels that after , her legs have started to swell up with fluids. She did have 3u pRBC transfused on 06/26/2020. PAST MEDICAL HISTORY: 1. Tobacco use disorder 2. History of alcoholism (stopped in November 2019 when she found out she was ) 3. History of recreational drug use PAST SURGICAL HISTORY: 1. Tonsillectomy and adenoidectomy 2. Appendectomy SOCIAL HISTORY: Tobacco use: Current smoker, last smoked on day of admission ETOH: Per patient, sober since November Illicit drug use: History of heroin use FAMILY HISTORY: Family history of schizophrenia and diabetes ALLERGIES: Please see below. REVIEW OF SYSTEMS: CONSTITUTIONAL: Denies any fever/chills HEENT: Denies sore throat CARDIOVASCULAR: Denies chest pain RESPIRATORY: Denies worsening dyspnea GASTROINTESTINAL: Reports abdominal tenderness and constipation GENITOURINARY: Denies dysuria SKIN: Denies rashes MUSCULOSKELETAL: Reports low back pain NEUROLOGICAL: Denies paresthesias PSYCHIATRIC: Reports anxiety. Her father in the hospital which has caused some anxiety HOME MEDICATIONS: Please see below. PHYSICAL EXAMINATION: VITAL SIGNS: (From this morning when I saw her) Temperature 98.5, pulse 90, respiratory rate 16, blood pressure 182/96, pulse oximetry 96% on room air. GENERAL: Comfortable, in no apparent respiratory distress HEENT: Head normocephalic, atraumatic NECK: Supple CARDIOVASCULAR EXAMINATION: Regular rate and rhythm RESPIRATORY EXAMINATION: Lungs clear to auscultation bilaterally ABDOMINAL EXAMINATION: Soft, mild tenderness, normal bowel sounds EXTREMITIES: Bilateral pitting edema SKIN: Warm and dry NEUROLOGICAL EXAMINATION: CN 3-12 grossly intact PSYCHIATRIC EXAMINATION: Anxious LABORATORY DATA: See below. ASSESSMENT and PLAN: 1. Hypertension -Multifactorial. May be related to increased volume from blood transfusion and fluids, history of smoking, and -Reports increased swelling in legs, will try a small dose of furosemide -Continue labetalol 300mg TID and clonidine 0.1mg BID -Increase nifedipine from 30mg qHS to 60mg qHS -Hydralazine PRN 2. Nicotine use disorder -Continue with nicotine patch -Will reinforce smoking cessation, especially with around 3. Opioid abuse disorder -Continue with buprenorphine 4. Constipation -Patient had BM today -Continue with docusate Thank you for consulting us. We will continue following Vital Signs Vital Signs Date Time Temp Pulse Resp B/P (MAP) Pulse Ox O2 Delivery O2 Flow Rate FiO2 06/27/20 21:43 90 152/84 (106) 06/27/20 18:00 98.5 16 99 Room Air Laboratory Data Labs 24H Laboratory Tests 2 06/27/20 08:02: Nucleated Red Blood Cells % (auto) 0.0, Anion Gap 5L, Glomerular Filtration Rate > 60.0, Calcium Level 8.8, Magnesium Level 1.7L 06/27/20 09:15: Urine Opiates Screen NEGATIVE, Urine Methadone Screen NEGATIVE, Urine Barbiturates Screen NEGATIVE, Urine Phencyclidine Screen NEGATIVE, Urine Amphetamines Screen NEGATIVE, Urine Benzodiazepines Screen NEGATIVE, Urine Cocaine Metabolite Screen NEGATIVE, Urine Cannabinoids Screen NEGATIVE CBC/BMP Laboratory Tests 06/27/20 08:02 Home Medications Scheduled Acetaminophen (Acetaminophen) 500 Mg Tablet, 1 TAB PO Q6H for fever Buprenorphine HCl (Buprenorphine HCl) 8 Mg Tab.subl, 2 MG SL BID Clonidine Hcl (Clonidine HCl) 0.1 Mg Tablet, 0.1 MG PO BID Sennosides (Laxative Pills) 15 Mg Tablet, 1 TAB PO QPM Allergies Coded Allergies: fluoxetine (Verified Allergy, Unknown, 06/21/20) A-FIB/CHADSVASC A-FIB History Current/History of A-Fib/PAF?: No DIANNE LUU DO Jun 27, 2020:30
[2020-06-28] VITALS (9 sets, daily range): BP systolic 136–160; BP diastolic 78–92
[2020-06-28] MEDS: LABETALOL 100MG TAB PO SCH ×3 (01:00→16:54)
[2020-06-28] MEDS ORDERED: LABETALOL 100MG TAB As Ordered ONE (01:07)
[2020-06-28 07:47] LABS: HEMATOCRIT 29.1 % (36.0-47.0); HEMOGLOBIN 9.4 g/dl (12.0-15.5); MEAN CORPUSCULAR HEMOGLOBIN 29.2 pg (27.0-33.0); MEAN CORPUSCULAR HGB CONC 32.3 g/dl (32.0-36.5); MEAN CORPUSCULAR VOLUME 90.4 fl (80.0-96.0); PLATELET COUNT, AUTOMATED 313 10^3/uL (150-450); RED BLOOD COUNT 3.22 10^6/uL (4.00-5.40)
[2020-06-28] MEDS: ACETAMINOPHEN 500 MG TAB PO PRN (07:55)
[2020-06-28] MEDS: cloNIDine 0.1MG TABLET PO SCH ×2 (07:56→16:54)
[2020-06-28] MEDS: BUPRENORPHINE HCL 8MG SUBINGUAL TABLET SL SCH ×2 (07:56→16:53)
[2020-06-28 08:23] LABS: BLOOD UREA NITROGEN 10 MG/DL (7-18); CALCIUM LEVEL 8.5 MG/DL (8.5-10.1); CARBON DIOXIDE LEVEL 26 MEQ/L (21-32); CHLORIDE LEVEL 109 MEQ/L (98-107); CREATININE FOR GFR 0.44 MG/DL (0.55-1.30); GLOMERULAR FILTRATION RATE > 60.0 (>60); GLUCOSE, FASTING 86 MG/DL (70-100); MAGNESIUM LEVEL 1.8 MG/DL (1.8-2.4); POTASSIUM SERUM 4.6 MEQ/L (3.5-5.1); SODIUM LEVEL 140 MEQ/L (136-145)
[2020-06-28] MEDS: NICOTINE 7 MG/24 HR TRANSDERMAL TD SCH (08:42)
[2020-06-28] MEDS: DOCUSATE SODIUM 100MG CAPSULE PO SCH (08:43)
--- NOTE | 2020-06-28 09:13 | IPNPDOC ---
Text Note Date of Service The patient was seen on 06/28/20. NOTE PPD 4 SUBJECT: Samara is a 24yo Status post c/b pre-e w/ severe features. She received IV MgSO4 for 24hr PP. She has been ambulating, voiding spontaneously without issue and tolerating regular diet. Lochia decreasing/minimal. Pain is well-controlled. Denies headache, visual changes, right upper quadrant pain, shortness breath or chest pain. Received 3U prbc after delivery for anemia and had appropriate rise in h/h status post transfusion. IM was consulted yesterday for help with BP control since she has still reliably been in the severe range up until last night. She was given 1 dose of 10mg IV hydralazine and 1 dose of 20mg IV labetalol last night for severe bp's and since then has been 150's/80's on her routine po bp meds (clonidine, nifedipine and labetalol) OBJECTIVE: VITAL SIGNS: bp's since last night 150's/80's, afebrile. General: WDWN, resting comfortably in bed, A&O x3 Abdomen: Fundus firm at U-2. Soft, NTTP. Extremities: pitting edema bilaterally of feet and lower legs UOP is robust (400ml/hr this morning) ASSESSMENT: Status post spontaneous vaginal delivery; pre-e with severe features. Hypertensive, afebrile, hemodynamically stable with no evidence of infection. Improvement of bp's last night, diuresing very well. PLAN: Discussed with patient desires to and she DOES NOT want to continue breast feeding. I communicated this to Dr. Becerra so that he can take this into account with her bp med regimen. We appreciate IM recs. Given excellent diuresis and better bp's, possibility of discharging patient home later today depending on bp med regimen alterations Continue care / close observation. Encourage oral hydration and ambulation MD VIRGIE Cobb Fishbone, I+O Desean GARVIN I+O Laboratory Tests 06/28/20 07:18 Vital Signs Date Time Temp Pulse Resp B/P (MAP) Pulse Ox O2 Delivery O2 Flow Rate FiO2 06/28/20 08:43 158/84 06/28/20 07:00 108 06/28/20 05:00 99.1 18 96 Room Air I&O- Last 24 Hours up to 6 AM 06/28/20 05:59 Intake Total 1650 ml Output Total 4050 ml Balance -2400 ml Shanda Weldon MD Jun 28, 2020 09:13
--- NOTE | 2020-06-28 11:12 | IPNPDOC ---
Subjective Date Seen The patient was seen on 06/28/20. Subjective Chief Complaint/HPI Mrs. Umana is a 24 year old female with tobacco use disorder and history of recreational drug use who his here for delivery. Medicine was consulted for hypertension. Overnight, she required a dose of IV hydralazine and IV labetalol. This morning, her blood pressure is better controlled. She denies chest pain or dyspnea and her anxiety is improved. I do not see any more gross tremors today. She has decided to not breastfeed. Was planning to start HCTZ, but her blood pressure was in an acceptable range. This may have been from di uresis yesterday or improvement in anxiety. I instructed her to measure her blood pressure at home and report results to PCP. Objective Physical Examination General Exam: Positive: Alert, Cooperative Eye Exam: Positive: EOMI; Negative: Sclera icteric ENT Exam: Positive: Atraumatic Neck Exam: Positive: Supple Chest Exam: Positive: Clear to auscultation; Negative: Rales, Rhonchi, Wheezing Heart Exam: Positive: Rate Normal, Regular Rhythm Abdomen Exam: Positive: Normal bowel sounds, Soft Extremity Exam: Positive: Edema Neuro Exam: Positive: Normal Speech, Cranial Nerves 3-12 NL Psych Exam: Positive: Mental status NL, Mood NL Assessment /Plan Assessment Blood pressure is better controlled today. Would recommended that she obtain a PCP and a blood pressure cuff at home. Measure blood pressure at home at least twice a day. Once in the morning and once in the afternoon. If her systolic blood pressure drops below 110, please contact your primary care provider about management of blood pressure medications. If she feels lightheaded, dizzy, nauseous, short of breath, or unsteady on her feet, she should call EMS. At this time, will not add on HCTZ due to improvement of blood pressure. Again, would recommended that she establish with a PCP and monitor blood pressure at home. Plan/VTE VTE Prophylaxis Ordered?: Yes Plan 1. Hypertension -Multifactorial. May be related to increased volume from blood transfusion and fluids, history of smoking, and -Reports increased swelling in legs, will try a small dose of furosemide -Continue labetalol 300mg TID and clonidine 0.1mg BID -Increase nifedipine from 30mg qHS to 60mg qHS -Blood pressure better controlled today. Will have patient follow up with PCP for blood pressure management. Patient should obtain blood pressure cuff at home 2. Nicotine use disorder -Continue with nicotine patch -Will reinforce smoking cessation, especially with around 3. Opioid abuse disorder -Continue with buprenorphine 4. Constipation -Patient had BM today -Continue with docusate Thank you for consulting us. We will sign off at this time. If there are any further questions or concerns, please do not hesitate to reconsult us VS, I&O, 24H, Fishbone Vital Signs/I&O Vital Signs Date Time Temp Pulse Resp B/P (MAP) Pulse Ox O2 Delivery O2 Flow Rate FiO2 06/28/20 10:55 138/78 (98) 06/28/20 09:00 84 06/28/20 05:00 99.1 18 96 Room Air I&O- Last 24 Hours up to 6 AM 06/28/20 06:00 Intake Total 1650 ml Output Total 4050 ml Balance -2400 ml Laboratory Data 24H LABS Laboratory Tests 2 06/28/20 07:18: Nucleated Red Blood Cells % (auto) 0.0, Anion Gap 5L, Glomerular Filtration Rate > 60.0, Calcium Level 8.5, Magnesium Level 1.8 CBC/BMP Laboratory Tests 06/28/20 07:18 DIANNE LUU DO Jun 28, 2020 11:12
[2020-06-28] MEDS ORDERED: LABE100T4 PO (14:38)
[2020-06-28] MEDS ORDERED: NIFE1TAB52 PO (14:38)
== END 2020-06-28 18:25 | disposition home or self-care (01) | DRG 560 ==
LOC: M LDI 18:54 → M OBS 06-24 15:27
PROVIDERS: ADMIT Advanced Practice Midwife; ATTEND Advanced Practice Midwife
PROC: 3E0P7GC Introduction of Other Therapeutic Substance into Female Reproductive, Via Natural or Artificial Opening (ICD-10-PCS; 2020-06-21)
PROC: 10E0XZZ Delivery of Products of Conception, External Approach (ICD-10-PCS; principal; 2020-06-23)
PROC: 0HQ9XZZ Repair Perineum Skin, External Approach (ICD-10-PCS; 2020-06-23)
PROC: 10907ZC Drainage of Amniotic Fluid, Therapeutic from Products of Conception, Via Natural or Artificial Opening (ICD-10-PCS; 2020-06-23)
PROC: 30233N1 Transfusion of Nonautologous Red Blood Cells into Peripheral Vein, Percutaneous Approach (ICD-10-PCS; 2020-06-25)
DX: O14.14 Severe pre-eclampsia complicating childbirth (principal); O99.324 Drug use complicating childbirth; O98.42 Viral hepatitis complicating childbirth; O72.1 Other immediate postpartum hemorrhage; D64.9 Anemia, unspecified; Z3A.37 37 weeks gestation of pregnancy; Z37.0 Single live birth; O70.0 First degree perineal laceration during delivery; O69.81X0 Labor and delivery complicated by cord around neck, without compression, not applicable or unspecified; F11.21 Opioid dependence, in remission; B18.2 Chronic viral hepatitis C; F17.210 Nicotine dependence, cigarettes, uncomplicated; O99.334 Smoking (tobacco) complicating childbirth; O43.193 Other malformation of placenta, third trimester; O99.02 Anemia complicating childbirth; F10.21 Alcohol dependence, in remission; K59.00 Constipation, unspecified; O99.62 Diseases of the digestive system complicating childbirth

== ENCOUNTER → 2020-08-15 | Outpatient (REF) | payer OTHER ==
[~2020-08-15] MED LIST: ACET-683 PO; BUPR8SUB SL; CATA0.2D PO; CLONI1TA PO; LABE100T4 PO; LAXA15TA PO; NIFE1TAB52 PO
[2020-08-15 17:40] LABS: HEMATOCRIT 37.1 % (36.0-47.0); HEMOGLOBIN 11.7 g/dl (12.0-15.5); MEAN CORPUSCULAR HEMOGLOBIN 27.9 pg (27.0-33.0); MEAN CORPUSCULAR HGB CONC 31.5 g/dl (32.0-36.5); MEAN CORPUSCULAR VOLUME 88.3 fl (80.0-96.0); PLATELET COUNT, AUTOMATED 359 10^3/uL (150-450); WHITE BLOOD COUNT 12.8 10^3/uL (4.0-10.0)
[2020-08-15 18:07] LABS: ATYPICAL LYMPH 2 % (0-5); BASOPHILS 1 % (0-1); EOSINOPHILS 1 % (0-3); LYMPHOCYTES 41 % (16-44); MONOCYTES 8 % (0-5); NEUTROPHILS 47 % (28-66); PLATELET ESTIMATE NORMAL (NORMAL)
== END ==
LOC: M SFHCWAGY 16:44 → M PLALAB 16:44
PROVIDERS: ATTEND Advanced Practice Midwife
DX: D64.9 Anemia, unspecified (principal)

== ENCOUNTER 2020-10-01 14:24 | Inpatient (IN) | payer OTHER ==
[~2020-10-01] VITALS: Ht 170.2 cm; Wt 91.5 kg
[~2020-10-01 14:24] MED LIST changes: +AMOX500C PO; +BUPR1FIL PO; +CHAN1PAK11 PO; +GOOD8.6T2 PO; +LABE300T2 PO; +PANT40TA29
[2020-10-01] MEDS ORDERED: ACETAMINOPHEN TAB 650MG DOSE (2X325MG) PO PRN (15:05)
[2020-10-01] MEDS: D5W/0.45% SODIUM CHLORIDE 1,000 ML IV SCH (15:05)
[2020-10-01] MEDS ORDERED: ONDANSETRON 4MG/2ML VIAL IV PRN (15:05)
[2020-10-01] MEDS ORDERED: KETOROLAC 30 MG/ML 1ML VIAL IV PRN (15:05)
[2020-10-01 16:20] VITALS: BP 138/89
[2020-10-01] MEDS ORDERED: VITA1CAP25 PO (17:13)
[2020-10-01 18:00] VITALS: BP 139/88
[2020-10-01] MEDS: PANTOPRAZOLE 40MG TAB (PROTONIX) PO SCH (18:03)
[2020-10-01] MEDS: PIPERACILLIN/TAZOBACTAM SOD 3.375 GM in D5W MINI-BAG PLUS 50 ML IV SCH (18:40)
[2020-10-01] MEDS: BUPRENORPHINE/NALOXONE 2-0.5MG SUBLINGUAL TABLET(SUBOXONE) SL SCH (19:05)
[2020-10-01] MEDS: cloNIDine 0.1MG TABLET PO SCH (19:05)
[2020-10-01] MEDS: LABETALOL 100MG TAB PO SCH (19:05)
[2020-10-01] MEDS: VARENICLINE 0.5 MG TABLET PO SCH (20:25)
[2020-10-01] MEDS ORDERED: cloNIDine 0.1MG TABLET PO SCH (21:00)
[2020-10-01] MEDS ORDERED: LABETALOL 100MG TAB PO SCH (21:00)
[2020-10-01] MEDS ORDERED: BUPRENORPHINE/NALOXONE 2-0.5MG SUBLINGUAL TABLET(SUBOXONE) SL SCH (21:00)
[2020-10-01 22:00] VITALS: BP 136/75
--- NOTE | 2020-10-01 22:25 | HPE ---
HISTORY AND PHYSICAL DATE OF ADMISSION: 10/01/2020 ADMITTING DIAGNOSIS: Cholelithiasis with choledocholithiasis, elevated liver function tests, and pancreatitis. HISTORY OF PRESENT ILLNESS: The patient is a 25-year-old woman who presented to the Emergency Department at [facility] at approximately 9:23 on the morning of the 01 of October. She complained of upper abdominal pain with some radiation to the chest and lateral right upper quadrant. She had first noticed this pain intermittently shortly after giving to her daughter on the 23 of June. The pain would come intermittently, last a few hours and then resolve. She reports that she has had some persistent pain over approximately a week and a half now, which does wax and wane. She noted that over the last few days, her urine became somewhat dark. She had noted in particular a pain that started on the 20 of September following a meal of ice cream and a hamburger. The pain became even more severe on the night of the and because this persisted with an episode of vomiting on the morning of the , she presented for evaluation. She was seen in the Emergency Department by the physician biology laboratory assistant. She had some tenderness in the right upper quadrant. Her labs showed elevations of her liver function tests as well as an elevation of her white count and her lipase. Gallbladder ultrasound showed multiple gallstones within the gallbladder. There was some mild gallbladder wall thickening up to 4 mm, but no pericholecystic fluid was appreciated. The report from the radiologist does indicate that a sonographic Hernadez's sign was noted. The common bile duct measured 5 mm in diameter. Because of these findings, I was consulted. ALLERGIES: Patient reports an adverse reaction to Fluoxetine. MEDICATIONS: Include: 1. Clonidine 0.1 mg p.o. twice daily. 2. Labetalol Hydrochloride 300 mg p.o. twice daily. 3. Amoxicillin 500 mg p.o. three times daily for a dental problem. 4. Tylenol as needed for pain. 5. Buprenorphine Naloxone film tabs one-quarter of an 8 mg/2 mg film twice daily. 6. Varenicline Tartrate also known as Chantix one tablet twice daily. PAST MEDICAL HISTORY: Patient had given after induction for preeclampsia back on the 23 of June. She has a history of Hepatitis C, which she reports was appropriately treated. She has a history of previous intravenous drug use, but reports she has not been using any drugs for 5 years or more. She is a former heavy user of alcohol and denies any use currently. She is a current smoker, but is trying to stop. PAST SURGICAL HISTORY: Significant for appendectomy and tonsillectomy. FAMILY HISTORY: Patient reports that her biologic mother apparently had hypertension, heart disease and gallbladder problems. REVIEW OF SYSTEMS: Patient denies any seizures or stroke. She does have a history of some hypertension, but has no history of DVT or pulmonary embolus. She denies any respiratory or renal problems. She has no bone or joint issues. She reports no prior history of peptic ulcer disease, jaundice, or intestinal problems. She does report a history of some anxiety and depression. She is a single mom and is very anxious about being from her young infant. PHYSICAL EXAMINATION: GENERAL: A pleasant young woman appearing older than her stated age of 25 years. She is alert and oriented and cooperative. SKIN: Warm and dry. HEENT: Sclerae appear anicteric. Mucous membranes are moist. Neck is supple. HEART: Shows a regular rate and rhythm. LUNGS: Clear. ABDOMEN: Mildly obese. She has multiple recent appearing striae on the abdomen. She has a small scar just above the umbilicus, which she reports is from her appendectomy. She does have some bowel sounds present. The abdomen is without any tenderness to percussion. There is some mild direct tenderness to palpation in the epigastrium and right subcostal area. There is no mass appreciated. There is no rebound or guarding. EXTREMITIES: Without edema and she has intact radial and pedal pulses. LABORATORY STUDIES: Include CBC showing white count 17,000 with hemoglobin 13, hematocrit 40 and platelet count 354,000. Differential count shows 76% neutrophils, 17% lymphocytes and 5% monocytes. Chemistry profile showed sodium 138, potassium 5.2, chloride 102, CO2 24, BUN 11, creatinine 0.5 and glucose 147. Her liver function tests showed total bilirubin 1.7 with direct 0.7, AST 392, ALT 1,191, alkaline phosphatase 490 and lipase 13,054. Her Beta-HCG quantitative was less than 5.0. Urinalysis was notable for urobilinogen of 4.0. IMAGING: Imaging of the gallbladder was as noted in the history of the present illness. IMPRESSION: 1. Cholelithiasis with choledocholithiasis with elevated liver function tests (obstructive jaundice) and pancreatitis. 2. Hypertension. 3. History of intravenous narcotic abuse on Suboxone. 4. History of Hepatitis C, treated. 5. Anxiety and depression. PLAN: The patient was seen in the Emergency Department and after discussion, she elected to go home briefly to take care of her dog and to see her daughter and ensure that those caring for her daughter had all of the supplies that they would need and was then brought back into the hospital as a direct admission to me. She was counseled that the gallstones in the gallbladder must be addressed by removing her gallbladder to prevent future episodes of problems. However, the more immediate issue is that her lab studies and symptoms are consistent with choledocholithiasis with some elevation of her liver function tests and pancreatitis. Her symptoms seem to have diminished and it maybe that she has passed a stone or stones. I have recommended that we start her on antibiotics to prevent cholangitis. We will keep her n.p.o. on I.V. fluid and reassess her labs in the morning. If her labs show marked improvement with no recurrence of her symptoms, then I would consider proceeding directly to a laparoscopic cholecystectomy. If the labs remain significantly elevated, then a GI consultation for possible ERCP would be appropriate. She will remain on her usual medications for her hypertension and her history of narcotic use. The patient had an opportunity to ask questions and these were answered to the best of my ability. She is somewhat anxious about being in the hospital and away from her daughter, but recognizes the need for treatment of her problems. She is agreeable with the plan as I have outlined it.
[2020-10-02] MEDS: D5W/0.45% SODIUM CHLORIDE 1,000 ML IV SCH ×3 (01:32→11:24)
[2020-10-02] MEDS: PIPERACILLIN/TAZOBACTAM SOD 3.375 GM in D5W MINI-BAG PLUS 50 ML IV SCH ×4 (01:32→16:52)
[2020-10-02 02:00] VITALS: BP 108/60
[2020-10-02 06:00] VITALS: BP 112/60
[2020-10-02 08:41] LABS: BASO % 0.4 % (0.0-1.0); EOS # 0.3 10^3/uL (0.0-0.5); EOS % 2.6 % (0.0-3.0); HEMATOCRIT 37.1 % (36.0-47.0); HEMOGLOBIN 11.9 g/dl (12.0-15.5); LYMPH # 2.8 10^3/uL (1.5-5.0); LYMPH % 26.3 % (24.0-44.0); MEAN CORPUSCULAR HEMOGLOBIN 27.7 pg (27.0-33.0); MEAN CORPUSCULAR HGB CONC 32.1 g/dl (32.0-36.5); MEAN CORPUSCULAR VOLUME 86.3 fl (80.0-96.0); MONO # 0.8 10^3/uL (0.0-0.8); MONO % 7.2 % (2.0-8.0); NEUTROPHILS # 6.8 10^3/uL (1.5-8.5); PLATELET COUNT, AUTOMATED 302 10^3/uL (150-450); WHITE BLOOD COUNT 10.8 10^3/uL (4.0-10.0)
[2020-10-02] MEDS ORDERED: NIFEdipine 30 MG XL TAB PO SCH (09:00)
[2020-10-02 09:08] LABS: ALBUMIN 3.3 GM/DL (3.2-5.2); ALT/SGPT 704 U/L (12-78); BILIRUBIN,TOTAL 1.1 MG/DL (0.2-1.0); BLOOD UREA NITROGEN 7 MG/DL (7-18); CALCIUM LEVEL 8.9 MG/DL (8.5-10.1); CARBON DIOXIDE LEVEL 26 MEQ/L (21-32); CHLORIDE LEVEL 107 MEQ/L (98-107); CREATININE FOR GFR 0.57 MG/DL (0.55-1.30); GLOMERULAR FILTRATION RATE > 60.0 (>60); GLUCOSE, FASTING 135 MG/DL (70-100); LIPASE 1269 U/L (73-393); POTASSIUM SERUM 4.1 MEQ/L (3.5-5.1); SODIUM LEVEL 140 MEQ/L (136-145); TOTAL PROTEIN 7.2 GM/DL (6.4-8.2)
[2020-10-02] MEDS: PANTOPRAZOLE 40MG TAB (PROTONIX) PO SCH (09:11)
[2020-10-02] MEDS: BUPRENORPHINE/NALOXONE 2-0.5MG SUBLINGUAL TABLET(SUBOXONE) SL SCH ×2 (09:11→16:50)
[2020-10-02] MEDS: VARENICLINE 0.5 MG TABLET PO SCH ×2 (09:11→16:50)
[2020-10-02] MEDS: LABETALOL 100MG TAB PO SCH ×2 (09:12→16:51)
[2020-10-02] MEDS: cloNIDine 0.1MG TABLET PO SCH ×2 (09:12→16:51)
[2020-10-02 10:00] VITALS: BP 120/77
--- NOTE | 2020-10-02 13:11 | IPNPDOC ---
Text Note Date of Service The patient was seen on 10/02/20. NOTE General Surgery. Dr Pineda. The patient is a 25-year-old female admitted with cholelithiasis and choledocholithiasis with elevated LFTs and pancreatitis. This morning, the patient is resting in bed, she reports abdominal pain is improved today. She denies nausea or vomiting. Afebrile. Heart rate 72, respiratory rate 16, blood pressure 112/60, 94% room air Awake and alert, no acute distress Moist mucous membranes S1-S2 regular rate rhythm Lungs are clear to auscultation Abdomen soft, nontender, nondistended, currently nontender with palpation. Assessment/plan Cholelithiasis with choledocholithiasis. This morning, the patient reports pain is improved. She denies nausea vomiting or abdominal pain at this time. Labs this morning indicate WBC 10.8, decreased from 16.8 on admission. LFTs are downtrending Lipase is 1269 compared with 13,054 on admission. NPO IV Zosyn. IVF 125cc/hr. Will review with Dr Pineda, continue to monitor. VS,Fishbone, I+O VS, Fishbone, I+O Laboratory Tests 10/02/20 08:16 Vital Signs Date Time Temp Pulse Resp B/P (MAP) Pulse Ox O2 Delivery O2 Flow Rate FiO2 10/02/20 10:00 97.8 83 13 120/77 (91) 93 10/02/20 06:00 Room Air I&O- Last 24 Hours up to 6 AM 10/02/20 06:00 Intake Total 1300 ml Output Total 500 ml Balance 800 ml Clare Godwin Oct 02, 2020 13:11
[2020-10-02 14:00] VITALS: BP 117/77
--- NOTE | 2020-10-02 15:50 | REP ---
INDICATION: possible common bile duct stone. COMPARISON: Comparison sonography October 01, 2020 showed cholelithiasis.. TECHNIQUE: Axial and coronal T2 weighted scans are acquired. MRCP Re exam is acquired and maximum density projection images are generated and viewed rotationally in addition to source coronal images. FINDINGS: There is no evidence of intra or extrahepatic biliary ductal dilation. The common bile duct is not dilated measuring 0.4 cm. The gallbladder is at the upper range of normal in size measuring 8.3 cm in diameter. It contains numerous small gallstones layering in its dependent portion. The pancreatic duct is normal in caliber and orientation. There is no evidence of ascites or pericholecystic fluid. IMPRESSION: Cholelithiasis. No MRCP evidence to suggest choledocholithiasis. <Electronically signed by Will Acevedo > 10/02/20 0992
[2020-10-02 22:00] VITALS: BP 125/72
[2020-10-03] MEDS: D5W/0.45% SODIUM CHLORIDE 1,000 ML IV SCH ×3 (00:51→17:48)
[2020-10-03] MEDS: PIPERACILLIN/TAZOBACTAM SOD 3.375 GM in D5W MINI-BAG PLUS 50 ML IV SCH ×5 (00:52→17:48)
[2020-10-03 00:58] VITALS: BP 150/95
[2020-10-03 02:00] VITALS: BP 131/70
[2020-10-03 06:00] VITALS: BP 141/76
[2020-10-03] MEDS: PANTOPRAZOLE 40MG TAB (PROTONIX) PO SCH (08:54)
[2020-10-03] MEDS: BUPRENORPHINE/NALOXONE 2-0.5MG SUBLINGUAL TABLET(SUBOXONE) SL SCH ×2 (08:54→17:29)
[2020-10-03] MEDS: LABETALOL 100MG TAB PO SCH ×2 (08:54→17:29)
[2020-10-03] MEDS: VARENICLINE 0.5 MG TABLET PO SCH ×2 (08:54→17:29)
[2020-10-03] MEDS: cloNIDine 0.1MG TABLET PO SCH ×2 (08:54→17:29)
--- NOTE | 2020-10-03 09:17 | IPNPDOC ---
Text Note Date of Service The patient was seen on 10/03/20. NOTE General Surgery. Dr Pineda. The patient is a 25-year-old female admitted with cholelithiasis and choledocholithiasis with elevated LFTs and pancreatitis. Plan for laparoscopic cholecystectomy as per Dr. Khan later this afternoon. Afebrile. VSS Awake and alert, no acute distress Moist mucous membranes S1-S2 regular rate rhythm Lungs are clear to auscultation Abdomen soft, nontender, nondistended, mild tenderness right upper quadrant. Lipase, CMP pending today MR abdomen 10/02/2020 indicating no evidence to suggest choledocholithiasis. Cholelithiasis Assessment/plan Cholelithiasis. MRI abdomen 10/02/2020 with no MRCP evidence to suggest choledocholithiasis. CMP and lipase pending this morning NPO IV Zosyn. IVF 75 cc/hr. Tentative Plan for laparoscopic cholecystectomy pending scheduling as per Dr Pineda . VS,Fishbone, I+O VS, Fishbone, I+O Vital Signs Date Time Temp Pulse Resp B/P (MAP) Pulse Ox O2 Delivery O2 Flow Rate FiO2 10/03/20 08:54 153/93 10/03/20 06:00 97.5 58 16 96 Room Air I&O- Last 24 Hours up to 6 AM 10/03/20 05:59 Intake Total 1600 ml Output Total 2100 ml Balance -500 ml Clare Godwin Oct 03, 2020 09:17
[2020-10-03 10:52] LABS: ALBUMIN 3.6 GM/DL (3.2-5.2); ALT/SGPT 497 U/L (12-78); BILIRUBIN,TOTAL 0.7 MG/DL (0.2-1.0); BLOOD UREA NITROGEN 8 MG/DL (7-18); CALCIUM LEVEL 9.4 MG/DL (8.5-10.1); CARBON DIOXIDE LEVEL 25 MEQ/L (21-32); CHLORIDE LEVEL 106 MEQ/L (98-107); CREATININE FOR GFR 0.62 MG/DL (0.55-1.30); GLOMERULAR FILTRATION RATE > 60.0 (>60); GLUCOSE, FASTING 122 MG/DL (70-100); LIPASE 1040 U/L (73-393); POTASSIUM SERUM 4.3 MEQ/L (3.5-5.1); SODIUM LEVEL 138 MEQ/L (136-145); TOTAL PROTEIN 7.6 GM/DL (6.4-8.2)
[2020-10-03 14:00] VITALS: BP 140/92
[2020-10-03 17:29] VITALS: BP 132/82
== END 2020-10-03 21:06 | disposition home or self-care (01) ==
LOC: M MSPAV 16:26
PROVIDERS: ADMIT Surgery; ATTEND Surgery
DX: K80.71 Calculus of gallbladder and bile duct without cholecystitis with obstruction (principal); K85.90 Acute pancreatitis without necrosis or infection, unspecified; I10 Essential (primary) hypertension; Z79.899 Other long term (current) drug therapy; F41.9 Anxiety disorder, unspecified; F32.9 Major depressive disorder, single episode, unspecified

== ENCOUNTER 2020-10-05 12:00 | Day surgery (SDC) | payer OTHER ==
[~2020-10-05] VITALS: Ht 170.2 cm; Wt 88.5 kg
[~2020-10-05 12:00] MED LIST changes: +KETOROLAC 60MG 2ML VIAL As Ordered ONE; +LIDOCAINE 2% 100MG/5ML SDV (FOR ANES.) As Ordered ONE; +LR 1,000 ML IV ONE; +MIDAZOLAM INJ 2MG/2ML VIAL (J2250 PER 1MG) As Ordered ONE; +ONDANSETRON 4MG/2ML VIAL As Ordered ONE; +ROCURONIUM BROMIDE 50 MG/5 ML VIAL As Ordered ONE; +SUGAMMADEX SODIUM 500 MG/5 ML VIAL (BRIDION) As Ordered ONE; +VITA1CAP25 PO; +dexameTHASONE 4 MG/ML 1ML VIAL (J1100 PER 1MG) As Ordered ONE; +fentaNYL 250 MCG/5 ML INJECTION (J3010) As Ordered ONE; +propofoL 200 MG/20 ML VIAL As Ordered ONE
[2020-10-05] MEDS ORDERED: cefoTEtan DISODIUM 2 GM in D5W MINI-BAG PLUS 50 ML IV ONE (13:40)
[2020-10-05] MEDS ORDERED: BUPIVACAINE HCL 0.25% 30ML VIAL As Ordered ONE (14:14)
[2020-10-05] MEDS ORDERED: ACETAMINOPHEN 1000MG 100ML IV BTL (OFIRMEV) (J0131 PER 10MG) As Ordered ONE (14:56)
[2020-10-05] MEDS ORDERED: fentaNYL 100 MCG/2 ML INJECTION (J3010) As Ordered ONE (16:26)
[2020-10-05] MEDS: fentaNYL 100 MCG/2 ML INJECTION (J3010) IV PRN ×4 (16:29→16:47)
[2020-10-05] MEDS ORDERED: ONDANSETRON 4MG/2ML VIAL IV PRN (16:30)
[2020-10-05] MEDS ORDERED: LR 1,000 ML IV SCH (16:30)
[2020-10-05] MEDS ORDERED: oxyCODONE 5MG TAB PO PRN (16:30)
[2020-10-05] MEDS: HYDROMORPHONE HCL 0.5 MG/ 0.5 ML SYRINGE (J1170 PER 1) IV PRN ×2 (16:52→16:58)
[2020-10-05 18:10] VITALS: BP 148/82
--- NOTE | 2020-10-07 08:00 | RO ---
OPERATIVE NOTE DATE OF OPERATION: 10/05/2020 PREOPERATIVE DIAGNOSIS: Recent choledocholithiasis with biliary pancreatitis. POSTOPERATIVE DIAGNOSIS: Recent choledocholithiasis with biliary pancreatitis. PROCEDURE PERFORMED: Laparoscopic cholecystectomy. SURGEON: Patricio Pineda MD OPTOMECHANICAL ENGINEER: None. ANESTHESIA: General. INDICATIONS FOR THE PROCEDURE: The patient is a 25-year-old woman who had presented several days ago to the hospital with severe upper abdominal pain with marked elevations of the liver function test and a markedly elevated lipase. Workup revealed cholelithiasis. Her pain improved significantly overnight and a nuclear biliary scan showed a nondistended common bile duct with no evidence of filling defects. With her resolution of pain and improved lab work, it was clear that she had passed a stone but had no evidence of any retained stones. Scheduling difficulties prohibited my getting her surgery done during that recent admission and she presents now for an outpatient laparoscopic cholecystectomy. OPERATIVE PROCEDURE: The patient was brought to the operating room and placed on the table in a supine position. She was placed under general endotracheal anesthesia. The abdomen was prepped and draped in a sterile fashion. 1/4% Marcaine was infiltrated at each of the trocar sites as needed. A short transverse left upper quadrant skin incision was made and a Veress needle was inserted. After a positive hanging drop test, the abdomen was insufflated with carbon dioxide gas. A 5 mm port was placed over the scope and advanced to the abdominal wall without difficulty. Initial examination showed no evidence of Veress needle or trocar injury. The liver appeared normal. A 12 mm port was placed through a supraumbilical incision and then two 5 additional ports were placed in the right upper quadrant. The patient was tilted to a slight reverse Trendelenburg position and rolled slightly to the left. Graspers were inserted. The edge of the liver was elevated and the gallbladder was identified. The gallbladder did not appear acutely inflamed. The gallbladder was grasped and elevated. Dissection then began in the area of the gallbladder neck using the hook cautery to open the peritoneum and dissect through the pericholecystic tissues. With dissection at the neck of the gallbladder, the cholecystic artery was identified and this was clipped and divided. This had partly obscured the cystic duct and this was further dissected free and then doubly clipped with hemoclips and divided. A second arterial branch was identified proceeding to the lateral aspect of the gallbladder and this was also clipped and divided. The gallbladder was then dissected free from the gallbladder bed using cautery dissection. The gallbladder was not perforated in the course of dissection. The gallbladder was placed in an Endopouch. The right upper quadrant was irrigated and inspected and there was no evidence of bleeding or bile leak. The patient was returned to a flat position. The abdomen was deflated and the trocars were removed. The gallbladder was recovered through the supraumbilical site. At the supraumbilical site, the fascial edges appeared to have transversely so the fascia was sutured transversely using a running suture of 2-0 PDS. The skin incisions were all closed with buried sutures of 4-0 Vicryl and Steri-Strips. Light dressings were applied. The patient tolerated the procedure without apparent complication. The specimen was sent for permanent pathology. Multiple small stones were palpable within the gallbladder. The patient was awakened in the operating room, extubated and moved to the recovery room in stable condition.
== END 2020-10-05 18:10 | disposition home or self-care (01) ==
LOC: M SDC 12:00
PROVIDERS: ATTEND Surgery
DX: K80.10 Calculus of gallbladder with chronic cholecystitis without obstruction (principal); I10 Essential (primary) hypertension; F17.290 Nicotine dependence, other tobacco product, uncomplicated; Z79.899 Other long term (current) drug therapy; F11.11 Opioid abuse, in remission
CPT/HCPCS: 47562; 88304; J0131; J1100; J1170; J1885; J2250; J2405; J3010

== ENCOUNTER → 2020-11-08 | Outpatient (CLI) | payer OTHER ==
[~2020-11-08] MED LIST changes: +IBUP-1022 PO; -KETOROLAC 60MG 2ML VIAL As Ordered ONE; -LIDOCAINE 2% 100MG/5ML SDV (FOR ANES.) As Ordered ONE; -LR 1,000 ML IV ONE; -MIDAZOLAM INJ 2MG/2ML VIAL (J2250 PER 1MG) As Ordered ONE; -ONDANSETRON 4MG/2ML VIAL As Ordered ONE; -ROCURONIUM BROMIDE 50 MG/5 ML VIAL As Ordered ONE; -SUGAMMADEX SODIUM 500 MG/5 ML VIAL (BRIDION) As Ordered ONE; +TRAM50TA2; -dexameTHASONE 4 MG/ML 1ML VIAL (J1100 PER 1MG) As Ordered ONE; -fentaNYL 250 MCG/5 ML INJECTION (J3010) As Ordered ONE; -propofoL 200 MG/20 ML VIAL As Ordered ONE
== END ==
LOC: M LABSMTC 11:21
PROVIDERS: ATTEND Anesthesiology
DX: Z20.828 Contact with and (suspected) exposure to other viral communicable diseases (principal); Z11.59 Encounter for screening for other viral diseases

== ENCOUNTER 2020-11-13 08:22 | Day surgery (SDC) | payer OTHER ==
[~2020-11-13] VITALS: Ht 170.2 cm; Wt 86.2 kg
[~2020-11-13 08:22] MED LIST changes: +AMPICILLIN SOD/SULBACTAM SOD 3 GM in D5W MINI-BAG PLUS 100 ML IV ONE; +LR 1,000 ML IV ONE; +dexameTHASONE 4 MG/ML 1ML VIAL (J1100 PER 1MG) IV ONE
[2020-11-13] MEDS ORDERED: CLIN300C6 (09:14)
[2020-11-13] MEDS ORDERED: dexameTHASONE 4 MG/ML 1ML VIAL (J1100 PER 1MG) As Ordered ONE (10:51)
[2020-11-13] MEDS ORDERED: SUGAMMADEX SODIUM 500 MG/5 ML VIAL (BRIDION) As Ordered ONE (10:51)
[2020-11-13] MEDS ORDERED: fentaNYL 100 MCG/2 ML INJECTION (J3010) As Ordered ONE (10:51)
[2020-11-13] MEDS ORDERED: MIDAZOLAM INJ 2MG/2ML VIAL (J2250 PER 1MG) As Ordered ONE (10:51)
[2020-11-13] MEDS ORDERED: ONDANSETRON 4MG/2ML VIAL As Ordered ONE (10:51)
[2020-11-13] MEDS ORDERED: LIDOCAINE 2% 100MG/5ML SDV (FOR ANES.) As Ordered ONE (10:52)
[2020-11-13] MEDS ORDERED: ROCURONIUM BROMIDE 50 MG/5 ML VIAL As Ordered ONE (10:52)
[2020-11-13] MEDS ORDERED: propofoL 200 MG/20 ML VIAL As Ordered ONE (10:52)
[2020-11-13] MEDS ORDERED: LIDOCAINE 2% W/ EPINEPHRINE 1.7 ML DENTAL INJ As Ordered ONE (11:48)
[2020-11-13] MEDS ORDERED: CHLORHEXIDINE GLUCONATE 0.12 % 15ML UDC (PERIDEX ORAL RINSE) As Ordered ONE (12:16)
[2020-11-13] MEDS ORDERED: ACETAMINOPHEN 1000MG 100ML IV BTL (OFIRMEV) (J0131 PER 10MG) As Ordered ONE (12:36)
[2020-11-13] MEDS ORDERED: GLYCOPYRROLATE INJ 0.2 MG/ML 2 ML VIAL As Ordered ONE (12:43)
[2020-11-13] MEDS ORDERED: ePHEDrine SULFATE 25 MG/5 ML(5MG/ML) SYRINGE As Ordered ONE (13:27)
[2020-11-13] MEDS ORDERED: fentaNYL 100 MCG/2 ML INJECTION (J3010) IV PRN (14:15)
[2020-11-13] MEDS ORDERED: ONDANSETRON 4MG/2ML VIAL IV PRN (14:15)
[2020-11-13] MEDS ORDERED: LR 1,000 ML IV SCH (14:15)
[2020-11-13] MEDS ORDERED: oxyCODONE 5MG TAB PO PRN (14:15)
--- NOTE | 2020-11-13 14:35 | RO ---
OPERATIVE NOTE DATE OF OPERATION: 11/13/2020 PREOPERATIVE DIAGNOSIS: 1. Severe dental anxiety, potentially difficult airway. 2. Hopeless and decayed dentation including teeth #2, 3, 5, 6, 7, 8, 9, 10, 11, 12, 13, 14, 15, 18, 19, 20, 21, 22, 23, 24, 25, 26, 27, 28, 29, 30 and 31. Impacted and symptomatic tooth #16 and horizontally impacted, full bony impacted and asymptomatic tooth #17. POSTOPERATIVE DIAGNOSIS: Status post the above. PROCEDURE PERFORMED: Extraction of teeth #2, 3, 5, 6, 7, 8, 9, 10, 11, 12, 13, 14, 15, 16, 18, 19, 20, 21, 22, 23, 24, 25, 26, 27, 28, 29, 30 and 31 (not #17). SURGEON: Alex Rose DMD OPTICAL ENGINEERING TECHNICIAN: ANESTHESIA: General endotracheal anesthesia via nasal ROMAN. SPECIMEN: Teeth for gross only. INDICATION FOR PROCEDURE: Mrs. Samara Paredes is a pleasant, 25-year-old female who was referred to my office for evaluation for extraction of all of her teeth in preparation for future denture fabrication. She does report a severe history of needle phobia and dental anxiety. Clinical examination reveals a grossly decayed dentition all around impacting teeth #16 and 17. Radiograph shows #17 has divergent roots. It is a full bony impacted, horizontally impacted wisdom tooth with apices overriding the inferior alveolar nerve. This tooth has never been symptomatic. I gave her the options of performing the procedure and in the office with a very light sedation due to her difficult airway or performing it in an operating room setting under general anesthesia. She elected to have general anesthesia in an operating room setting. I also went over the risks and benefits of extracting all the teeth including #17 including nerve risk for injury and she elected to retain tooth #17. Therefore, the plan is to remove all the other teeth. A complete history and physical is in the patient's chart. Informed consent was explained and is in the patient's chart as well. DESCRIPTION OF PROCEDURE: The patient was taken back to the operating room. She was laid supine on the operating room table. Ulnar nerve protectors were placed. Noninvasive cardiac monitors were applied. At that point, the patient underwent general anesthesia and was intubated with a nasal ROMAN. She was prepped and draped in the usual sterile fashion. A timeout procedure was performed to identify the patient, the procedure and any other precautions. A moist throat pack was inserted in the patient's oropharynx followed by the administration of 2% lidocaine with 1:100,000 epinephrine. Ten carpules of those were given. Also preoperative antibiotics and steroids were administered. At this point, a full thickness flap was released at sites #2, 3, 5, 6, 11, 12, 13, 14, 15, 16, 18, 19, 20, 21, 22, 27, 28, 29, 30, 31. A small buccal trough was made in all of these teeth areas. All the teeth were then luxated and delivered without any issues. Alveoloplasty was then performed to remove any sharp bony areas and undercuts. No sign of exposure was noted. The inferior alveolar nerve was not noted and the flaps were all closed with 3-0 Chromic sutures. At this point, routine forcep extractions of teeth #7, 8, 9, 10, 23, 24, 25, 26 was performed. All the sockets were curetted and irrigated. At this point once all the teeth were removed, the oral cavity was irrigated and suctioned. The throat pack was removed. The patient was awakened from general anesthesia and taken back to the PACU. COMPLICATIONS: None. ESTIMATED BLOOD LOSS: 50 mL DRAINS: There were no drains placed.
[2020-11-13 15:25] VITALS: BP 178/100
== END 2020-11-13 15:40 | disposition home or self-care (01) ==
LOC: M SDC 08:22
PROVIDERS: ATTEND Dentist
DX: K02.9 Dental caries, unspecified (principal); F17.290 Nicotine dependence, other tobacco product, uncomplicated; F41.9 Anxiety disorder, unspecified; F32.9 Major depressive disorder, single episode, unspecified; Z79.899 Other long term (current) drug therapy; Z88.8 Allergy status to other drugs, medicaments and biological substances
CPT/HCPCS: 81025; 88300; D7210; D7310; D9223; J0131; J1100; J2250; J2405; J3010